=== PATIENT | male | born 1965 | race Caucasian/White ===

== ENCOUNTER 2016-11-27 18:14 | Inpatient (IN) | payer OTHER, MEDICARE ==
[~2016-11-27] VITALS: Ht 175.3 cm; Wt 172.7 kg
[~2016-11-27 18:14] MED LIST: AMLODIPINE/BENAZ PO; ASPI81 PO; DARV PO; GLUCTAB PO; GLYB1TAB51 PO; METATAB PO; POTA-243 PO; TOPR50TA PO; TORS20 PO; ZEGRID PO
[2016-11-27 18:17] VITALS: BP 111/57; PULSE 122; RESP 33; TEMP 101.7; O2SAT 93
[2016-11-27] MEDS ORDERED: ACETAMINOPHEN 325 MG TAB PO ONE (18:30)
[2016-11-27] MEDS ORDERED: SODIUM CHLORIDE 0.9% FLUSH 10 ML FLUSH IVF PRN (18:30)
[2016-11-27] MEDS: RESP: ALBUTEROL 2.5 MG/IPRATROPIUM 0.5 MG NEB (SCH) INH ×2 (18:30→18:37)
--- NOTE | 2016-11-27 18:50 | RADRPT ---
EXAM DATE/TIME: 11/27/2016 18:43 [facility] COMPARISON: No previous studies available for comparison. INDICATIONS : Shortness of breath. MEDICAL HISTORY : Hypertension. Diabetes mellitus type II. SURGICAL HISTORY : None. ENCOUNTER: Initial ACUITY: 2 days PAIN SCORE: 0/10 LOCATION: Bilateral chest FINDINGS: A single view of the chest demonstrates the lungs to be symmetrically aerated without evidence of mas s, infiltrate or effusion. The cardiomediastinal contours are unremarkable. Osseous structures are intact. CONCLUSION: No acute disease. Bradley Ivy MD on November 27, 2016 at 18:48 Board Certified Radiologist. This report was verified electronically.
--- NOTE | 2016-11-27 18:52 | PD ---
HPI Chief Complaint: Respiratory Symptoms Time Seen by Provider: 18:30 Travel History International Travel<30 days: No Contact w/Intl Traveler<30days: No Traveled to known affect area: No History of Present Illness HPI 51-year-old male presents to the emergency department via EMS for evaluation of shortness of breath. Patient states his symptoms started yesterday. He is also febrile on exam, temp 101.7. He states this started yesterday. He last had Tylenol at 2 PM. Patient denies any history of respiratory issues, but does smoke 3 packs per day for over 40 years. He states he has hypertension and spinal cord problems. Patient denies any history of CHF, renal disease. He states that he is short of breath. He denies any chest pain. Patient states he has had pneumonia in the past, but nothing significant. He reports cough. He apparently received albuterol and Solu-Medrol 125 mg IV via EMS. PFSH Past Medical History Blood Disorders: No Cancer: No Cardiovascular Problems: Yes Diabetes: Yes Endocrine: No Glaucoma: No Genitourinary: No Headaches: Yes Hepatitis: No Hiatal Hernia: No Hypertension: Yes Immune Disorder: No Musculoskeletal: Yes Neurologic: Yes Psychiatric: No Reproductive: No Respiratory: Yes Thyroid Disease: No Past Surgical History Abdominal Surgery: Yes (COLONOSCOPY) Cardiac Surgery: Yes (HEART CATH 2003) Pacemaker: No Social History Alcohol Use: No Tobacco Use: Yes (1 PACK DAY 30 YEARS) Substance Use: No Allergies-Medications (Allergen,Severity, Reaction): Coded Allergies: No Known Allergies (Verified , 11/27/16) Reported Meds & Prescriptions Reported Meds & Active Scripts Active Reported ZyrTEC Itchy Eye Opth Drops (Ketotifen Opth Drops) 0.025% Drops 1 Drop EACH EYE BID PRN Niacin (Niacinamide) 500 Mg Tablet 1,000 Mg PO HS Montelukast (Montelukast Sodium) 10 Mg Tab 10 Mg PO HS Meloxicam 15 Mg Tab 15 Mg PO DAILY Hydrochlorothiazide 25 Mg Tab 25 Mg PO DAILY Benazepril (Benazepril HCl) 40 Mg Tab 40 Mg PO DAILY Pravastatin 10 Mg Tab 10 Mg PO DAILY Metoprolol Succinate ER 24 HR (Metoprolol Succinate) 100 Mg Tab 100 Mg PO DAILY Tramadol (Tramadol HCl) 50 Mg Tab 50 Mg PO BID PRN Metformin (Metformin HCl) 1,000 Mg Tab 1,000 Mg PO TIDAC Gabapentin 300 Mg Cap 300 Mg PO HS Omeprazole 20 Mg Tab 20 Mg PO DAILY Trulicity Inj (Dulaglutide Inj) 1.5 Mg/0.5 Ml Pen 1.5 Mg SQ Q7D Aspirin Low Dose (Aspirin) 81 Mg Chew 81 Mg CHEW DAILY Review of Systems Except as stated in HPI: all other systems reviewed are Neg Physical Exam Narrative GENERAL: Well-nourished, well-developed obese male patient, temperature of 101.7. SKIN: Focused skin assessment warm/dry. HEAD: Normocephalic. Atraumatic. EYES: No scleral icterus. No injection or drainage. NECK: Supple, trachea midline. No JVD or lymphadenopathy. CARDIOVASCULAR: Regular rhythm without murmurs, gallops, or rubs. Patient is tachycardic. RESPIRATORY: Breath sounds equal bilaterally. No accessory muscle use. Lungs sounds are diminished throughout. Dry cough noted. GASTROINTESTINAL: Abdomen soft, non-tender, nondistended. MUSCULOSKELETAL: No cyanosis, or edema. BACK: Nontender without obvious deformity. No CVA tenderness. Data Data Last Documented VS Vital Signs Date Time Temp Pulse Resp B/P (MAP) Pulse Ox O2 Delivery O2 Flow Rate FiO2 11/27/16 22:13 85 26 143/60 (87) 86 Nasal Cannula 2.00 11/27/16 21:12 98.6 Orders Orders Ecg Monitoring (11/27/16 18:23) Iv Access Insert/Monitor (11/27/16 18:23) Oximetry (11/27/16 18:23) Oxygen Administration (11/27/16 18:23) Albuterol-Ipratropium Neb (Duoneb Neb) (11/27/16 18:30) Sodium Chloride 0.9% Flush (Ns Flush) (11/27/16 18:30) Complete Blood Count With Diff (11/27/16 18:30) Basic Metabolic Panel (Bmp) (11/27/16 18:30) B-Type Natriuretic Peptide (11/27/16 18:30) Act Partial Throm Time (Ptt) (11/27/16 18:30) Prothrombin Time / Inr (Pt) (11/27/16 18:30) Magnesium (Mg) (11/27/16 18:30) Ckmb (Isoenzyme) Profile (11/27/16 18:30) Troponin I (11/27/16 18:30) Blood Culture (11/27/16 18:30) Electrocardiogram (11/27/16 18:30) Chest, Single Ap (11/27/16 18:30) Lactic Acid Sepsis Protocol (11/27/16 18:30) Acetaminophen (Tylenol) (11/27/16 18:30) Ct Pulmonary Angiogram (11/27/16 ) Sodium Chlor 0.9% 1000 Ml Inj (Ns 1000 M (11/27/16 19:30) CKMB (11/27/16 18:45) CKMB% (11/27/16 18:45) Azithromycin Inj (Zithromax Inj) (11/27/16 20:45) Ceftriaxone Inj (Rocephin Inj) (11/27/16 20:45) Sodium Chlor 0.9% 1000 Ml Inj (Ns 1000 M (11/27/16 21:00) Iohexol 350 Inj (Omnipaque 350 Inj) (11/27/16 22:32) Labs Laboratory Tests Test 11/27/16 18:45 11/27/16 18:47 11/27/16 21:10 White Blood Count 14.2 TH/MM3 Red Blood Count 4.56 MIL/MM3 Hemoglobin 13.9 GM/DL Hematocrit 42.4 % Mean Corpuscular Volume 93.0 FL Mean Corpuscular Hemoglobin 30.4 PG Mean Corpuscular Hemoglobin Concent 32.7 % Red Cell Distribution Width 14.2 % Platelet Count 199 TH/MM3 Mean Platelet Volume 8.8 FL Neutrophils (%) (Auto) 78.8 % Lymphocytes (%) (Auto) 13.0 % Monocytes (%) (Auto) 8.0 % Eosinophils (%) (Auto) 0.0 % Basophils (%) (Auto) 0.2 % Neutrophils # (Auto) 11.2 TH/MM3 Lymphocytes # (Auto) 1.8 TH/MM3 Monocytes # (Auto) 1.1 TH/MM3 Eosinophils # (Auto) 0.0 TH/MM3 Basophils # (Auto) 0.0 TH/MM3 CBC Comment DIFF FINAL Differential Comment Prothrombin Time 12.2 SEC Prothromb Time International Ratio 1.1 RATIO Activated Partial Thromboplast Time 29.5 SEC Blood Urea Nitrogen 13 MG/DL Creatinine 1.41 MG/DL Random Glucose 166 MG/DL Calcium Level 9.1 MG/DL Magnesium Level 1.4 MG/DL Sodium Level 136 MEQ/L Potassium Level 4.0 MEQ/L Chloride Level 98 MEQ/L Carbon Dioxide Level 26.0 MEQ/L Anion Gap 12 MEQ/L Estimat Glomerular Filtration Rate 53 ML/MIN Total Creatine Kinase 448 U/L Creatine Kinase MB LESS THAN 0.5 NG/ML Creatine Kinase MB % 0.1 % Troponin I LESS THAN 0.02 NG/ML B-Type Natriuretic Peptide 100 PG/ML Lactic Acid Level 2.8 mmol/L 3.3 mmol/L [facility] Medical Decision Making Medical Screen Exam Complete: Yes Emergency Medical Condition: Yes Medical Record Reviewed: Yes Interpretation(s) chest x-ray - CONCLUSION: No acute disease. Differential Diagnosis Pneumonia versus sepsis versus COPD exacerbation Narrative Course 51-year-old male presents to the emergency department for evaluation of shortness breath, fever that started yesterday. Temperature is 101.7 on arrival. Patient received albuterol nebulizer treatment, Solu-Medrol 125 mg IV prior to arrival. EKG, CBC, BMP, BNP, magnesium, CK, troponin, PTT, PT/INR, lactic acid, blood cultures 2 are ordered and pending. Chest x-ray is ordered and pending. Patient is given Tylenol 650 mg by mouth. EKG shows sinus rhythm, no acute ST changes. CBC shows leukocytosis of 14.2. BMP shows creatinine 1.41, glucose 166. BNP is 100. CK is 448. Troponin is less than 0.02. Lactic acid is 2.8. Magnesium is 1.4. Coags show no acute abnormality. Chest x-ray shows no acute disease. Patient is given azithromycin 500 mg IV, Rocephin 1 g IV. Patient is given Tylenol 2 L normal saline IV bolus. CT pulmonary angiogram is pending. Dr. Burnette will resume care and disposition of patient. Shell Treviño Nov 27, 2016 18:52
[2016-11-27 19:13] VITALS: BP 117/57; PULSE 101; RESP 26; O2SAT 97
[2016-11-27 19:24] LABS: AUTOMATED NEUTROPHIL # 11.2 TH/MM3 (1.8-7.7); BASOPHIL % 0.2 % (0.0-2.0); HEMATOCRIT 42.4 % (39.0-51.0); HEMO FLAGS DIFF FINAL; LYMPHOCYTE # 1.8 TH/MM3 (1.0-4.8); MEAN CORPUSCULAR HEMOGLOBIN 30.4 PG (27.0-34.0); MEAN CORPUSCULAR HGB CONC 32.7 % (32.0-36.0); NEUT % 78.8 % (16.0-70.0); PLATELET COUNT 199 TH/MM3 (150-450); RED BLOOD COUNT 4.56 MIL/MM3 (4.50-5.90); RED CELL DISTRIBUTION WIDTH 14.2 % (11.6-17.2); WHITE BLOOD COUNT 14.2 TH/MM3 (4.0-11.0)
[2016-11-27 19:27] LABS: ANION GAP 12 MEQ/L (5-15); BLOOD UREA NITROGEN 13 MG/DL (7-18); CHLORIDE 98 MEQ/L (98-107); GLOMERULAR FILTRATION RATE 53 ML/MIN (>89); MAGNESIUM 1.4 MG/DL (1.5-2.5); SODIUM (NA) 136 MEQ/L (136-145)
[2016-11-27] MEDS ORDERED: SODIUM CHLOR 0.9% 1000 ML INJ 1,000 ML IV ONE ×2 (19:30→21:00)
[2016-11-27 19:31] LABS: CREATINE KINASE 448 U/L (39-308)
[2016-11-27 19:32] LABS: APTT (PATIENT) 29.5 SEC (24.3-30.1); INTERNATIONAL NORMALIZED RATIO 1.1 RATIO; PROTHROMBIN TIME - PATIENT 12.2 SEC (9.8-11.6)
[2016-11-27] MEDS ORDERED: METF1000 PO (19:32)
[2016-11-27] MEDS ORDERED: NIAC500T67 PO (19:32)
[2016-11-27] MEDS ORDERED: TRAM50TA PO (19:32)
[2016-11-27] MEDS ORDERED: METO100T9 PO (19:32)
[2016-11-27] MEDS ORDERED: GABA300C5 PO (19:32)
[2016-11-27] MEDS ORDERED: PRAV10TA PO (19:32)
[2016-11-27] MEDS ORDERED: DULA0.5I SQ (19:32)
[2016-11-27] MEDS ORDERED: MONT10TA4 PO (19:32)
[2016-11-27] MEDS ORDERED: OMEP20TA PO (19:32)
[2016-11-27] MEDS ORDERED: ASPI81CH37 CHEW (19:32)
[2016-11-27] MEDS ORDERED: HYDR25TA5 PO (19:32)
[2016-11-27] MEDS ORDERED: KETO0.02 EACH EYE (19:32)
[2016-11-27] MEDS ORDERED: MELO-1 PO (19:32)
[2016-11-27] MEDS ORDERED: BENA40TA PO (19:32)
[2016-11-27 19:44] LABS: CKMB LESS THAN 0.5 NG/ML (0.5-3.6)
[2016-11-27] MEDS ORDERED: AZITHROMYCIN INJ 500 MG in SODIUM CHLOR 0.9% 250 ML INJ 250 ML IV ONE (20:45)
[2016-11-27] MEDS ORDERED: cefTRIAXone INJ 1,000 MG in SODIUM CHLORIDE 0.9% INJ 100 ML IV ONE (20:45)
--- NOTE | 2016-11-27 20:46 | PD ---
Physical Exam Narrative I, Dr. Burnette, have reviewed the advance practice practitioner's documentation and am in agreement, met with the patient face to face, made the diagnosis, and the medical decision making was done by me. *My assessment and Findings: Pneumonia vs. ACS vs. PE vs. COPD exacerbation 51yo M with sob, fever and cough for 1 day. Pt is hypoxic at 85-87% on RA so placed on nasal cannula 3L NC. Pt was given duonebs since he has a long history of cig smoking. Labs reviewed, leukocytosis at 14.2. Lactic acid elevated at 2.8. Troponin negative. BNP 100. Creatinine mildly elevated at 1.41. Pt initially febrile and tachycardic and given acetaminophen and NS IVF. Suspect pneumonia and empirically covered with antibiotics. CXR negative. CT angio ordered to r/o since pt is still hypoxic. No PE seen but there is a lung nodule that needs outpatient follow up. Pt denies any COPD but is a long time cig smoker. Upon reevaluation, said that he uses a machine at night so pt placed on CPAP and oxygenation improved. Discussed with [facility] hospitalist and accepted to their service. Data Data Last Documented VS Vital Signs Date Time Temp Pulse Resp B/P (MAP) Pulse Ox O2 Delivery O2 Flow Rate FiO2 11/27/16 23:30 96 11/27/16 22:13 85 26 143/60 (87) Nasal Cannula 2.00 11/27/16 21:12 98.6 Orders Orders Ecg Monitoring (11/27/16 18:23) Iv Access Insert/Monitor (11/27/16 18:23) Oximetry (11/27/16 18:23) Oxygen Administration (11/27/16 18:23) Albuterol-Ipratropium Neb (Duoneb Neb) (11/27/16 18:30) Sodium Chloride 0.9% Flush (Ns Flush) (11/27/16 18:30) Complete Blood Count With Diff (11/27/16 18:) Basic Metabolic Panel (Bmp) (11/27/16 18:30) B-Type Natriuretic Peptide (11/27/16 18:30) Act Partial Throm Time (Ptt) (11/27/16 18:30) Prothrombin Time / Inr (Pt) (11/27/16 18:30) Magnesium (Mg) (11/27/16 18:30) Ckmb (Isoenzyme) Profile (11/27/16 18:30) Troponin I (11/27/16 18:30) Blood Culture (11/27/16 18:30) Electrocardiogram (11/27/16 18:30) Chest, Single Ap (11/27/16 18:30) Lactic Acid Sepsis Protocol (11/27/16 18:30) Acetaminophen (Tylenol) (11/27/16 18:30) Ct Pulmonary Angiogram (11/27/16 ) Sodium Chlor 0.9% 1000 Ml Inj (Ns 1000 M (11/27/16 19:30) CKMB (11/27/16 18:45) CKMB% (11/27/16 18:45) Azithromycin Inj (Zithromax Inj) (11/27/16 20:45) Ceftriaxone Inj (Rocephin Inj) (11/27/16 20:45) Sodium Chlor 0.9% 1000 Ml Inj (Ns 1000 M (11/27/16 21:00) Iohexol 350 Inj (Omnipaque 350 Inj) (11/27/16 22:32) Arterial Blood Gas (Abg) (11/27/16 ) Resp Bipap / Cpap Non Invas Vt (11/27/16 23:30) Admit Order (Ed Use Only) (11/27/16 23:31) Labs Laboratory Tests Test 11/27/16 18:45 11/27/16 18:47 11/27/16 21:10 White Blood Count 14.2 TH/MM3 Red Blood Count 4.56 MIL/MM3 Hemoglobin 13.9 GM/DL Hematocrit 42.4 % Mean Corpuscular Volume 93.0 FL Mean Corpuscular Hemoglobin 30.4 PG Mean Corpuscular Hemoglobin Concent 32.7 % Red Cell Distribution Width 14.2 % Platelet Count 199 TH/MM3 Mean Platelet Volume 8.8 FL Neutrophils (%) (Auto) 78.8 % Lymphocytes (%) (Auto) 13.0 % Monocytes (%) (Auto) 8.0 % Eosinophils (%) (Auto) 0.0 % Basophils (%) (Auto) 0.2 % Neutrophils # (Auto) 11.2 TH/MM3 Lymphocytes # (Auto) 1.8 TH/MM3 Monocytes # (Auto) 1.1 TH/MM3 Eosinophils # (Auto) 0.0 TH/MM3 Basophils # (Auto) 0.0 TH/MM3 CBC Comment DIFF FINAL Differential Comment Prothrombin Time 12.2 SEC Prothromb Time International Ratio 1.1 RATIO Activated Partial Thromboplast Time 29.5 SEC Blood Urea Nitrogen 13 MG/DL Creatinine 1.41 MG/DL Random Glucose 166 MG/DL Calcium Level 9.1 MG/DL Magnesium Level 1.4 MG/DL Sodium Level 136 MEQ/L Potassium Level 4.0 MEQ/L Chloride Level 98 MEQ/L Carbon Dioxide Level 26.0 MEQ/L Anion Gap 12 MEQ/L Estimat Glomerular Filtration Rate 53 ML/MIN Total Creatine Kinase 448 U/L Creatine Kinase MB LESS THAN 0.5 NG/ML Creatine Kinase MB % 0.1 % Troponin I LESS THAN 0.02 NG/ML B-Type Natriuretic Peptide 100 PG/ML Lactic Acid Level 2.8 mmol/L 3.3 mmol/L MDM Supervised Visit with HERIBERTO: Yes Critical Care Narrative Aggregate critical care time was 45 minutes. Time to perform other separately billable procedures was not included in the critical care time. My time did not include minutes spent treating any other patients simultaneously or on activities that did not directly contribute to the patient's treatment. The services I provided to this patient were to treat and/or prevent clinically significant deterioration that could result in: Respiratory collapse or . I provided critical care services requiring my management, as noted below: Chart data/review, documentation time, medication orders and management, vital sign assessments/reviewing monitor data, ordering and reviewing lab tests, ordering and interpreting/reviewing x- rays and diagnostic studies, care of the patient and discussion of the patient with admitting physicians. Sepsis Criteria SIRS Criteria (2 or more): Temp > 100.9 or < 96.8, Heart rate over 90, RR > 20 or PaCO2 < 32, WBC > 85768, < 4000 or > 10% bands Sepsis Criteria (SIRS+source): Infect source susp/known Severe Sepsis (+one): Lactate >2 Criteria Outcome: Meets severe sepsis criteria Diagnosis Primary Impression: Sepsis Qualified Codes: A41.9 - Sepsis, unspecified organism Admitting Information Admitting Physician Requests: Adryan BurnetteBernice DO Nov 27, 2016 20:46
[2016-11-27 20:59] LABS: LACTIC ACID GHOST NOT REPORTABLE
[2016-11-27 21:12] VITALS: TEMP 98.6
[2016-11-27 22:13] VITALS: BP 143/60; PULSE 85; RESP 26; O2SAT 86
[2016-11-27] MEDS ORDERED: IOHEXOL 350 MG/ML 10 ML VIAL (for RAD DIAG) IVCONTRAST ONE (22:32)
--- NOTE | 2016-11-27 22:54 | RADRPT ---
EXAM DATE/TIME: 11/27/2016 22:21 [facility] COMPARISON: No previous studies available for comparison. INDICATIONS : Shortness of breath x3 days with wheezing and fever. IV CONTRAST: 80 cc Omnipaque 350 (iohexol) IV RADIATION DOSE: 15.7 CTDIvol (mGy) MEDICAL HISTORY : Cardiovascular disease. Hypertension. Diabetes mellitus type 2. SURGICAL HISTORY : Fusion, cervical. ENCOUNTER: Initial ACUITY: 3 days PAIN SCALE: 0/10 LOCATION: chest TECHNIQUE: Volumetric scanning of the chest was performed using a pulmonary embolism protocol MIP images were re constructed. Using automated exposure control and adjustment of the mA and/or kV according to patien t size, radiation dose was kept as low as reasonably achievable to obtain optimal diagnostic quality images. DICOM format image data is available electronically for review and comparison. Follow-up recommendations for detected pulmonary nodules are based at a minimum on nodule size and pa tient risk factors according to Fleischner Society Guidelines. FINDINGS: PULMONARY ARTERIES: No filling defects are seen in the pulmonary arteries through the segmental level. LUNGS: There is no consolidation or pneumothorax 6 mm noncalcified nodule is identified in the right upper l obe. Nodule is located along the minor fissure. Tiny calcified granulomas noted in the right upper lo be. PLEURAE: There is no pleural thickening or pleural effusion. MEDIASTINUM: Small mediastinal and hilar lymph nodes are identified. The largest measures 1.4 cm and is located in the right paratracheal region. Heart is unremarkable. MUSCULOSKELETAL: Within normal limits for patient age. MISCELLANEOUS: The visualized upper abdominal organs demonstrate no acute abnormality. The liver is enlarged and dif fusely hypodense. CONCLUSION: 1. No evidence of pulmonary embolism 2. Small nonspecific mediastinal and hilar lymph nodes. 3. 6 mm nodule in the right upper lobe along the minor fissure which may represent a small lymph node . Surveillance is recommended with followup scan in 6 months. 4. Right upper lobe calcified granuloma. 5. Enlarged hypodense liver characteristic of steatosis. Bradley Ivy MD on November 27, 2016 at 22:46 Board Certified Radiologist. This report was verified electronically.
[2016-11-27 23:30] VITALS: O2SAT 96
[2016-11-28] VITALS (15 sets, daily range): BP systolic 97–122; BP diastolic 50–74; PULSE 68–77; RESP 20–31; TEMP 97.6–98.5; O2SAT 90–99
[2016-11-28] MEDS ORDERED: RESP: ALBUTEROL 2.5 MG/IPRATROPIUM 0.5 MG NEB (PRN) NEB (00:15)
[2016-11-28] MEDS ORDERED: MAGNESIUM SULFATE 4 GM PREMIX 100 ML IV ONE (00:15)
[2016-11-28] MEDS ORDERED: SENNOSIDES 8.6 MG TAB PO PRN (00:15)
[2016-11-28] MEDS ORDERED: MAGNESIUM HYDROXIDE SUSP 30 ML CUP PO PRN (00:15)
[2016-11-28] MEDS ORDERED: SODIUM CHLORIDE 0.9% FLUSH 10 ML FLUSH IV FLUSH PRN (00:15)
[2016-11-28] MEDS ORDERED: GLUCAGON 1 MG/ML VIAL OTHER PRN (00:15)
[2016-11-28] MEDS ORDERED: BISACODYL 10 MG SUPP RECTAL PRN (00:15)
[2016-11-28] MEDS ORDERED: DEXTROSE 50% IN WATER 50 ML VIAL(D50) IV PUSH PRN (00:15)
[2016-11-28] MEDS ORDERED: LACTULOSE SYRUP 20 GM/30 ML CUP PO PRN (00:15)
[2016-11-28] MEDS ORDERED: NALOXONE HCL 0.4 MG/ML AMP IV PUSH PRN (00:15)
[2016-11-28] MEDS ORDERED: KETOTIFEN EACH EYE PRN (00:30)
[2016-11-28] MEDS: SODIUM CHLOR 0.9% 1000 ML INJ 1,000 ML IV SCH ×2 (00:40→09:27)
[2016-11-28] MEDS: HEPARIN SODIUM - SQ 10,000 UNITS/ML VIAL SQ SCH ×2 (00:49→12:55)
[2016-11-28] MEDS: MAGNESIUM SULFATE 1 GM PREMIX 100 ML IV SCH ×4 (00:59→06:47)
[2016-11-28] MEDS: traMADol HCL 50 MG TAB PO PRN ×3 (02:39→21:25)
[2016-11-28 02:44] LABS: BLOOD GAS CARBOXYHEMOGLOBIN 0.9 % (0-4); BLOOD GAS HCO3 25 mmol/L (22-26); BLOOD GAS METHEMOGLOBIN 0.7 % (0-2); BLOOD GAS O2 HGB SATURATION 92 % (90-100); BLOOD GAS OXYGEN CONTENT 16.9 Vol % (12.0-20.0); BLOOD GAS PCO2 52 mmHg (38-42); BLOOD GAS PO2 71 mmHG (61-120); BLOOD GAS TOTAL HGB 13.1 G/DL (12.0-16.0); CRITICAL VALUE YES; DRAW SITE LT RADIAL; LITER FLOW 6 L/M; NUMBER OF ARTERIAL PUNCTURES 1; OXYGEN DEVICE CPAP; STAT YES; TEMP CORR TO 98.6; ULNAR PULSE PRESENT; VENT SETTINGS PEEP 10
[2016-11-28] MEDS: RESP: ALBUTEROL 2.5 MG/IPRATROPIUM 0.5 MG NEB (SCH) NEB ×5 (03:06→23:32)
[2016-11-28] MEDS: methylPREDNISolone SOD SUCC 40 MG/1 ML VIAL IV PUSH SCH ×3 (06:47→18:03)
--- NOTE | 2016-11-28 07:41 | EKG ---
Date Performed: 11/27/2016 Time Performed: 18:56:31 PTAGE: 51 years EKG: SINUS TACHYCARDIA BORDERLINE LEFT AXIS DEVIATION POSSIBLE RIGHT VENTRICULAR CONDUCTION SYLVIE Y ABNORMAL RHYTHM ECG Compared to prior electrocardiogram, rate has increased PREVIOUS TRACING : 09/20/2005 10.50 DOCTOR: Logan Villarreal Interpretating Date/Time 11/28/2016 07:41:11
[2016-11-28] MEDS: MELOXICAM 15 MG TAB PO SCH (09:00)
[2016-11-28] MEDS: PRAVASTATIN SOD 10 MG TAB PO SCH (09:25)
[2016-11-28] MEDS: METOPROLOL SUCCINATE 50 MG EXTENDED RELEASE TAB PO SCH (09:25)
[2016-11-28] MEDS: LISINOPRIL 20 MG TAB PO SCH (09:25)
[2016-11-28] MEDS: DOCUSATE SODIUM 50 MG/SENNA 8.6 MG TAB PO SCH ×2 (09:25→19:51)
[2016-11-28] MEDS: PANTOPRAZOLE SOD 20 MG DELAYED RELEASE TAB PO SCH (09:25)
[2016-11-28] MEDS: ASPIRIN 81 MG CHEW TAB CHEW SCH (09:26)
[2016-11-28] MEDS: SODIUM CHLORIDE 0.9% FLUSH 10 ML FLUSH IV FLUSH SCH ×2 (09:26→19:50)
[2016-11-28] MEDS: INSULIN ASPART SUPPLEMENTAL SCALE SQ SCH ×4 (09:31→21:00)
--- NOTE | 2016-11-28 14:56 | RADRPT ---
EXAM DATE/TIME: 11/28/2016 14:07 [facility] COMPARISON: CHEST SINGLE AP, November 27, 2016, 18:43. INDICATIONS : Short of breath. MEDICAL HISTORY : Cardiovascular disease. Hypertension. Diabetes mellitus type 2. SURGICAL HISTORY : Fusion, cervical. ENCOUNTER: Subsequent ACUITY: 2 days PAIN SCORE: 0/10 LOCATION: Bilateral chest FINDINGS: A single view of the chest demonstrates the lungs to be symmetrically aerated without evidence of mas s, infiltrate or effusion. The cardiomediastinal contours are unremarkable. Osseous structures are intact. CONCLUSION: 1. No acute cardiopulmonary disease. Ted Cardona MD on November 28, 2016 at 14:55 Board Certified Radiologist. This report was verified electronically.
--- NOTE | 2016-11-28 16:18 | MB ---
cc: VEE PASTOR DATE OF CONSULTATION 11/28/2016 REASON FOR CONSULTATION Respiratory failure. HISTORY OF THE PRESENT ILLNESS This is a 51-year-old white male who is extremely overweight with a history of obstructive sleep apnea and COPD, was admitted through the emergency room with shortness of breath, wheezing and chest congestion. The patient has chronic pain in his neck and back from previous spinal surgery and also smoked two to three packs per day and has done so for over 40 years. He has had pneumonia in the past and upon arrival in the ER a chest x-ray was done which showed no active infiltrates. He had a CT angiogram of the chest which showed no pulmonary embolus but there was a 6 mm nodule in the right upper lobe along the minor fissure. There was also a nonspecific hilar and mediastinal lymph node and calcified granuloma in the right upper lobe and steatosis of the liver. The patient had blood gases that showed evidence of hypercapnia. He is now on C-PAP mask which he has had for more than 2 years given for sleep apnea. PAST MEDICAL HISTORY Of the patient has history included: 1. History of sleep apnea. 2. History of diabetes mellitus. 3. History of chronic headaches and neck pain. 4. History of hypertension. PAST SURGICAL HISTORY Surgery includes: 1. Cervical disc surgery. 2. Colonoscopy. 3. Cardiac catheterization. SOCIAL HISTORY Habits, the patient smoked two to three packs per day for over 30 years. No significant alcohol use. He is presently disabled. ALLERGIES None listed. MEDICATIONS List included: 1. Pravastatin 10 mg daily. 2. Hydrochlorothiazide 25 mg a day. 3. Benazepril 40 mg daily. 4. Meloxicam 15 mg daily. 5. Singulair 10 mg at bedtime. 6. Niacin 1000 milligrams at bedtime. 7. Metformin 1000 mg t.i.d. 8. Omeprazole 20 mg a day. 9. Tramadol 50 mg p.r.n. 10. Trulicity 1.5 mg subcu every 7 days. 11. Aspirin one daily. FAMILY HISTORY Noncontributory. ALLERGIES None listed. REVIEW OF SYSTEMS The patient has shortness of breath. He has wheezing and sleep apnea. He has epigastric distress. No nausea. He has leg swelling. No calf muscle pains. He has some joint pains of his extremities. He does have headaches and neck pain. He has no urinary symptoms. He has some anxiety with depression. The other system review is negative. PHYSICAL EXAMINATION GENERAL: This very obese middle-aged white male who is alert and anxious, mildly dyspneic and face was plethoric. VITAL SIGNS: His blood pressure 140/70, pulse is 85, respirations 20, temperature 97.5. HEENT: Head normocephalic. Pupils reactive and equal. Tongue is moist. Throat was injected. Nasal mucosa is clear. NECK: No bruits. No thyroid enlargement or lymphadenopathy. CHEST: Distant breath sounds with occasional wheezes throughout both lung longo. Prolonged expirations. HEART: The heart sounds are regular S1-S2 with no murmur, no S3 gallop. ABDOMEN: Obese, protuberant without masses. No organomegaly or tenderness. Bowel sounds are active. EXTREMITIES: Varicosities. Pigmentation of the skin of the lower extremities. No calf tenderness. NEUROLOGIC: Reflexes 1+ with no gross motor deficits. Cranial nerves grossly intact. The patient is alert and oriented and cooperative. IMPRESSION 1. Acute on chronic respiratory failure. 2. Obstructive sleep apnea syndrome. 3. COPD with acute exacerbation. 4. Chronic bronchitis and emphysema. 5. Hypertension. 6. Diabetes mellitus type 2. 7. Nicotine dependency. 8. Chronic neck pain with cervical disk disease. PLAN The patient has been started on O2 at 3 liters, nebulized DuoNeb solution q.i.d. and we will continue with antibiotic coverage including Rocephin 1 gram IV daily and Zithromax 500 mg IV daily. We will get a pulmonary function study in the a.m. Blood gas study as well. The patient was counseled about quitting cigarette smoking. The Solu-Medrol will be tapered down to 40 mg q.6h. And repeat blood gas to be done in the a.m. Thank you Dr. Irizarry for this consultation. MD NICK Berry/NATI /3:38 PM /3:50 PM
[2016-11-28 17:58] LABS: HEMATOCRIT 40.6 % (39.0-51.0); MEAN CORPUSCULAR HGB CONC 32.2 % (32.0-36.0); PLATELET COUNT 192 TH/MM3 (150-450); RED BLOOD COUNT 4.37 MIL/MM3 (4.50-5.90); RED CELL DISTRIBUTION WIDTH 14.6 % (11.6-17.2); REVIEW FLAG FINAL; WHITE BLOOD COUNT 11.2 TH/MM3 (4.0-11.0)
[2016-11-28 19:00] LABS: BICARBONATE 23.3 MEQ/L (21.0-32.0); MAGNESIUM 2.7 MG/DL (1.5-2.5); POTASSIUM 4.5 MEQ/L (3.5-5.1)
[2016-11-28] MEDS: BUDESONIDE-FORMOTEROL 160/4.5 MCG INHALER INH SCH (19:50)
[2016-11-28] MEDS: cefTRIAXone INJ 1,000 MG in SODIUM CHLORIDE 0.9% INJ 100 ML IV SCH (19:50)
[2016-11-28] MEDS: GABAPENTIN 300 MG CAP PO SCH (19:51)
[2016-11-28] MEDS: MONTELUKAST SODIUM 10 MG TAB PO SCH (19:51)
[2016-11-28] MEDS: NIACIN 500 MG EXTENDED RELEASE TAB PO SCH (21:24)
[2016-11-28] MEDS: AZITHROMYCIN INJ 500 MG in SODIUM CHLOR 0.9% 250 ML INJ 250 ML IV SCH (21:25)
[2016-11-28] MEDS: ALPRAZolam 0.25 MG TAB PO PRN (21:25)
[2016-11-29] VITALS (14 sets, daily range): BP systolic 101–146; BP diastolic 60–66; PULSE 54–78; RESP 22–52; TEMP 98–98.5; O2SAT 87–99
[2016-11-29] MEDS: methylPREDNISolone SOD SUCC 40 MG/1 ML VIAL IV PUSH SCH ×5 (00:45→21:12)
[2016-11-29] MEDS: HEPARIN SODIUM - SQ 10,000 UNITS/ML VIAL SQ SCH ×2 (00:45→12:21)
[2016-11-29] MEDS: RESP: ALBUTEROL 2.5 MG/IPRATROPIUM 0.5 MG NEB (SCH) NEB ×6 (03:37→23:54)
[2016-11-29 05:19] LABS: AUTOMATED NEUTROPHIL # 9.7 TH/MM3 (1.8-7.7); HEMATOCRIT 38.9 % (39.0-51.0); HEMO FLAGS DIFF FINAL; LYMPH % 8.5 % (9.0-44.0); LYMPHOCYTE # 0.9 TH/MM3 (1.0-4.8); MEAN CELL VOLUME 93.6 FL (80.0-100.0); MEAN CORPUSCULAR HEMOGLOBIN 30.8 PG (27.0-34.0); MONO % 3.4 % (0.0-8.0); NEUT % 88.1 % (16.0-70.0); PLATELET COUNT 183 TH/MM3 (150-450); RED BLOOD COUNT 4.16 MIL/MM3 (4.50-5.90); RED CELL DISTRIBUTION WIDTH 14.5 % (11.6-17.2); WHITE BLOOD COUNT 11.1 TH/MM3 (4.0-11.0)
[2016-11-29 05:23] LABS: BICARBONATE 25.6 MEQ/L (21.0-32.0); MAGNESIUM 2.8 MG/DL (1.5-2.5); POTASSIUM 4.5 MEQ/L (3.5-5.1)
[2016-11-29 05:32] LABS: INDIRECT BILIRUBIN 0.2 MG/DL (0.0-0.8); TOTAL BILIRUBIN ADULT 0.3 MG/DL (0.2-1.0)
[2016-11-29] MEDS: SODIUM CHLOR 0.9% 1000 ML INJ 1,000 ML IV SCH (06:34)
[2016-11-29] MEDS: INSULIN ASPART SUPPLEMENTAL SCALE SQ SCH ×4 (08:00→21:00)
[2016-11-29] MEDS: DOCUSATE SODIUM 50 MG/SENNA 8.6 MG TAB PO SCH ×2 (08:06→21:00)
[2016-11-29] MEDS: METOPROLOL SUCCINATE 50 MG EXTENDED RELEASE TAB PO SCH (08:06)
[2016-11-29] MEDS: PANTOPRAZOLE SOD 20 MG DELAYED RELEASE TAB PO SCH (08:06)
[2016-11-29] MEDS: PRAVASTATIN SOD 10 MG TAB PO SCH (08:06)
[2016-11-29] MEDS: ASPIRIN 81 MG CHEW TAB CHEW SCH (08:06)
[2016-11-29] MEDS: LISINOPRIL 20 MG TAB PO SCH (08:06)
[2016-11-29] MEDS: MELOXICAM 15 MG TAB PO SCH (08:07)
[2016-11-29] MEDS: SODIUM CHLORIDE 0.9% FLUSH 10 ML FLUSH IV FLUSH SCH ×2 (08:08→21:19)
[2016-11-29] MEDS: BUDESONIDE-FORMOTEROL 160/4.5 MCG INHALER INH SCH ×2 (08:08→21:15)
[2016-11-29 08:14] LABS: BACTERIA, URINE RARE /hpf; BLOOD, URINE LARGE (NEG); COMMENT (UR) CULTURE INDICATED; CULTURE IF INDICATED CULTURE INDICATED; GLUCOSE,URINE NEG (NEG); HYALINE CAST, URINE 79 /lpf (RARE); KETONE, URINE NEG (NEG); MUCUS URINE FEW /lpf (OCC); NITRITE,URINE NEG (NEG); PH, URINE 5.5 (5.0-8.5); SQUAMOUS EPITHELIAL CELL URINE 1 /hpf (0-5); URINE COLOR YELLOW (YELLW/STRAW)
[2016-11-29] MEDS: traMADol HCL 50 MG TAB PO PRN ×2 (08:19→17:27)
[2016-11-29] MEDS: ALPRAZolam 0.25 MG TAB PO PRN ×2 (08:19→17:27)
--- NOTE | 2016-11-29 09:24 | MH ---
cc: EL IRIZARRY DATE OF ADMISSION 11/27/2016 DATE OF [address] El Irizarry. TIME The patient seen around 11:00 a.m. this morning. REASON FOR ADMISSION Respiratory symptoms. Shortness of breath, cough. HISTORY OF THE PRESENT ILLNESS The patient is a very pleasant 51-year-old male with a significant past medical history of 3 packs a day ____ history for 40 years. The patient came to the ER because of shortness of breath started the day before yesterday. The patient has a temperature of 101.7 degrees Fahrenheit as per record. He took Tylenol but it did not help much. He has a cough with some mild sputum. He does not know the color of the sputum. There is no chest pain. There is some nausea but there is no vomiting. Occasional diarrhea or constipation. There is no headache. The patient came to the ER. In the ER he was evaluated by the ER physician and found to have pneumonia and admitted. The patient was given Solu-Medrol in the EMS. His lactic acid was high. He was recommended for admission. On admission his heart rate was 122, temperature of 101.7 and blood pressure of 101/67. With a WBC count of 14.2. PAST MEDICAL HISTORY 1. The patient is following with Dr. Kramer for questionable cardiology reason. As per patient he just every six months just for a checkup. He had a cardiac cath done in 2003 as per records. 2. Also a history of hyperlipidemia. 3. Hypertension. 4. Diabetes. MEDICATIONS Reviewed, please see the EMR. ALLERGIES NO KNOWN DRUG ALLERGIES. SOCIAL HISTORY The patient does not drink or do any drugs. He smokes 3 packs per day for approximately 30-40 years. REVIEW OF SYSTEMS As described in the history of present illness. Otherwise negative for 10 systems. FAMILY HISTORY Noncontributory. PHYSICAL EXAMINATION GENERAL: The patient is alert and oriented, morbidly obese lying in bed with a Venti-mask on at present. Some shortness of breath. VITAL SIGNS: Show the patient is afebrile. Vitals were showing at that time afebrile, heart rate , respiratory rate is 20, blood pressure 116/74, pulse oximetry of 93% on 6 liters nasal cannula. HEENT: Head is atraumatic, normocephalic. Eyes negative conjunctival icterus. Mouth unremarkable. NECK: Supple. Negative increase in JVD. Central trachea. CHEST: Decreased distant air entry bibasilarly in the ____ with expiratory wheeze and ____ scattered all over and some inspiratory wheeze. And the patient has crackles in the bases. A couple of rhonchi in the bases. CARDIOVASCULAR: S1 and S2 audible. Unable to hear any S3 gallop. ABDOMEN: Soft, doughy. Non-tender. No organomegaly. Positive bowel sounds. EXTREMITIES: No cyanosis or pedal edema appreciated. TRAFFIC CONTROL TECHNICIAN: Grossly intact. SKIN: Warm and moist. PSYCHIATRIC: Appropriate mood and affect. LABORATORY DATA Investigations, WBC 14.2. Hemoglobin, hematocrit and platelet count within normal limits. Creatinine 1.41, GFR 53, random glucose 166, otherwise BMP within normal limits. Lactic acid last 3.3. Magnesium 1.4. Total bilirubin 448. Troponin less than 0.02. B-type natriuretic peptide 100. Nasal aspirate negative for flu A and B. Blood culture no growth for one day. IMAGING CT angiogram was done which showed no evidence of PE. Small nonspecific mediastinal and hilar lymph node. 6 mm nodule in the right upper lobe along the minor fissure which may represent a small lymph node. Right upper lobe calcified granuloma. Enlarged hypodense liver characteristic of steatosis. Chest x-ray was done which shows no acute disease. EKG was done which shows no acute ST-T waves changes. Sinus tachy. ABG was done yesterday which shows pH of 7.31, pCO2 of 52, O2 of 71 on 6 liters. ASSESSMENT 1. Respiratory failure. 2. Mild respiratory acidosis. 3. COPD exacerbation. 4. Acute bronchitis. 5. Leukocytosis secondary to above. 6. Sepsis on admission. 7. Lactic acidosis. 8. Hypomagnesemia. 9. Diabetes. 10. Hypertension. 11. Hyperlipidemia. PLAN 1. Admitted to the ICU. 2. IV hydration. 3. Breathing treatment. 4. IV antibiotic. 5. IV steroids. 6. Pulmonary consult. 7. Cardiology consult. 8. Labs for tomorrow. 9. Monitor lactic acid. 10. Monitor white blood cell count 11. Continue home medications as indicated. 12. Sliding scale insulin coverage. 13. We will hold metformin because of lactic acidosis and IV contrast use. 14. Breathing treatment on p.r.n. basis. 15. Discussed with the patient and family at bedside in detail. 16. Discussed with RN in detail. 17. Discussed with respiratory therapist. CONDITION Guarded. PROGNOSIS Guarded. Further recommendations as the patient progresses. El Irizarry MD JP/NATI /4:30 PM /9:13 AM
--- NOTE | 2016-11-29 10:15 | HHI.PR ---
Subjective Remarks has hematuria after garber cath no garber at present breathing better still cough and wheez ROS for 10 point system is otherwise unremarkable Objective Objective Results - Vital Signs Date Time Temp Pulse Resp B/P (MAP) Pulse Ox O2 Delivery O2 Flow Rate FiO2 11/29/16 08:00 98.0 62 26 108/66 (80) 92 11/29/16 08:00 62 11/29/16 07:55 92 CPAP 11/29/16 06:00 59 11/29/16 04:00 63 11/29/16 04:00 63 24 101/60 (74) 94 11/29/16 02:00 60 11/29/16 00:00 98.5 62 31 101/63 (76) 92 11/29/16 00:00 62 11/28/16 22:00 73 11/28/16 20:00 98.5 72 22 110/68 (82) 96 11/28/16 20:00 72 11/28/16 19:45 94 home cpap 6.00 11/28/16 18:00 73 11/28/16 16:00 98.0 71 31 102/73 (83) 98 11/28/16 16:00 72 11/28/16 14:00 68 11/28/16 13:55 16 11/28/16 12:00 76 11/28/16 12:00 97.8 76 24 97/66 (76) 94 I/O 11/28/16 11/28/16 11/28/16 11/29/16 11/29/16 11/29/16 07:00 15:00 23:00 07:00 15:00 23:00 Intake Total 1400 ml 1757 ml 1345 ml Output Total 1250 ml 425 ml Balance 1400 ml 507 ml 920 ml Intake Oral 400 ml 480 ml IV Total 1400 ml 1357 ml 865 ml Output Urine Total 1250 ml 425 ml # Voids 1 # Bowel Movements 0 0 Result Diagram: 11/29/16 0453 11/29/16 0453 Other Results Laboratory Tests Test 11/28/16 17:13 11/29/16 04:53 11/29/16 06:30 White Blood Count 11.2 11.1 Red Blood Count 4.37 4.16 Hemoglobin 13.1 12.8 Hematocrit 40.6 38.9 Mean Corpuscular Volume 93.0 93.6 Mean Corpuscular Hemoglobin 30.0 30.8 Mean Corpuscular Hemoglobin Concent 32.2 33.0 Red Cell Distribution Width 14.6 14.5 Platelet Count 192 183 Mean Platelet Volume 8.7 9.1 Blood Urea Nitrogen 22 34 Creatinine 1.08 1.46 Random Glucose 210 204 Calcium Level 8.7 8.2 Magnesium Level 2.7 2.8 Sodium Level 135 137 Potassium Level 4.5 4.5 Chloride Level 102 104 Carbon Dioxide Level 23.3 25.6 Anion Gap 10 7 Estimat Glomerular Filtration Rate 72 51 Neutrophils (%) (Auto) 88.1 Lymphocytes (%) (Auto) 8.5 Monocytes (%) (Auto) 3.4 Eosinophils (%) (Auto) 0.0 Basophils (%) (Auto) 0.0 Neutrophils # (Auto) 9.7 Lymphocytes # (Auto) 0.9 Monocytes # (Auto) 0.4 Eosinophils # (Auto) 0.0 Basophils # (Auto) 0.0 CBC Comment DIFF FINAL Differential Comment Total Protein 6.9 Albumin 3.0 Alkaline Phosphatase 97 Aspartate Amino Transf (AST/SGOT) 62 Alanine Aminotransferase (ALT/SGPT) 60 Total Bilirubin 0.3 Direct Bilirubin 0.1 Lactic Acid Level 1.2 Indirect Bilirubin 0.2 Urine Color YELLOW Urine Turbidity CLEAR Urine pH 5.5 Urine Specific [place] 1.023 Urine Protein TRACE Urine Glucose (UA) NEG Urine Ketones NEG Urine Occult Blood LARGE Urine Nitrite NEG Urine Bilirubin NEG Urine Urobilinogen LESS THAN 2.0 Urine Leukocyte Esterase SMALL Urine RBC 168 Urine WBC 36 Urine Squamous Epithelial Cells 1 Urine Bacteria RARE Urine Hyaline Casts 79 Urine Mucus FEW Microscopic Urinalysis Comment CULTURE INDICATED Date/Time Source Procedure Growth Status 11/27/16 18:50 Blood Peripheral Aerobic Blood Culture - Preliminary NO GROWTH IN 1 DAY Resulted 11/27/16 18:50 Blood Peripheral Anaerobic Blood Culture - Preliminary NO GROWTH IN 1 DAY Resulted 11/28/16 12:44 Nasal Aspirate Influenza Types A,B Antigen (JAMIN) - Final NEGATIVE FOR FLU A AND B ANTIGEN.... Complete 11/29/16 06:30 Urine Clean Catch Urine Culture Pending Received Physical Exam Physical Exam GENERAL: The patient is alert and oriented, morbidly obese lying in bed with a Venti-mask on at present. Some shortness of breath. VITAL SIGNS: reviewed HEENT: Head is atraumatic, normocephalic. Eyes negative conjunctival icterus. Mouth unremarkable. NECK: Supple. Negative increase in JVD. Central trachea. CHEST: Decreased distant air entry bibasilarly, with some expiratory wheeze and some inspiratory wheeze. And the patient has occ crackles in the bases. A couple of rhonchi in the bases. CARDIOVASCULAR: S1 and S2 audible. Unable to hear any S3 gallop. ABDOMEN: Soft, doughy. Non-tender. No organomegaly. Positive bowel sounds. EXTREMITIES: No cyanosis or pedal edema appreciated. MEDICAL CLAIMS REPRESENTATIVE: Grossly intact. SKIN: Warm and moist. PSYCHIATRIC: Appropriate mood and affect. A/P Assessment and Plan 1. Respiratory failure. 2. Mild respiratory acidosis. 3. COPD exacerbation. 4. Acute bronchitis. 5. Leukocytosis secondary to above. 6. Sepsis on admission. 7. Lactic acidosis. 8. Hypomagnesemia. 9. Diabetes. 10. Hypertension. 11. Hyperlipidemia. PLAN 1. seen in ICU. 2. IV hydration. 3. Breathing treatment. 4. IV antibiotic. 5. IV steroids. 6. Pulmonary consult jana . 7. education sales consultant on floor dw him about pt cond. 8. Labs reviewed and Labs for tomorrow. 9. wnl lactic acid. 10. Monitor white blood cell count 11. Continue home medications as indicated. 12. Sliding scale insulin coverage. 13. We will hold metformin because of lactic acidosis and IV contrast use. 14. Breathing treatment on p.r.n. basis. 15. Discussed with the patient and family at bedside in detail. 16. Discussed with RN. 17. monitor hematuria connd guarded CONDITION Guarded. PROGNOSIS Guarded. Further recommendations as the patient progresses. Jas Irizarry MD Nov 29, 2016 10:15
--- NOTE | 2016-11-29 11:30 | MB ---
cc: BRITNEY LARIOS M.D. DATE OF CONSULTATION: 11/29/2016 HISTORY OF PRESENT ILLNESS This is a 51-year-old male with history of hypertension, obesity and noncompliance, tobacco abuse about two packs daily, hypertension, venous insufficiency, sleep apnea on CPAP. The patient presented with severe episodes of shortness of breath. He was found to be in COPD exacerbation, having persistent cough also. No chest pain and no nausea or vomiting, no diaphoresis. PAST MEDICAL HISTORY As above. SOCIAL HISTORY As above. Occasional alcohol. No drugs. FAMILY HISTORY Noncontributory. REVIEW OF SYSTEMS Difficult to breathe, fatigue. Immobility. MEDICATION See chart for details. ALLERGIES No known drug allergies. PHYSICAL EXAMINATION GENERAL: Alert, oriented, on mask BiPAP. VITAL SIGNS: Blood pressure 108/70, pulse in the 70s. Regular equal bilateral respiration 20. Afebrile. HEENT: Unremarkable. HEART: S1, S2, very distant heart sounds. LUNGS: <<1:45>> ABDOMEN: Markedly, morbidly obese. EXTREMITIES: Trace edema. Pulses grossly intact. IMAGING STUDIES CTA and chest x-ray noted with no evidence for PE. LABORATORY DATA Cardiac enzymes and the BNP is essentially negative. IMPRESSION AND PLAN Possible exacerbation of COPD with possible element of bronchitis. Will get an Echo for him since he has not been seen in my office in the last 5 years, to get a better assessment of his cardiac status and followup with me. Thank you for the consultation. MD AURELIO Heard/MILLICENT /10:46 AM /11:11 AM
[2016-11-29] MEDS ORDERED: SODIUM CHLOR 0.9% 1000 ML INJ 1,000 ML IV SCH (12:45)
--- NOTE | 2016-11-29 17:40 | ECHRPT ---
Indication: sob CONCLUSIONS The left ventricular systolic function is normal with an estimated ejection fraction in the range of 55-60%. Mildly dilated left ventricle. Wall thickness is normal. [id number] mitral valve regurgitation. No aortic valve regurgitation. No aortic valve stenosis. There is mild tricuspid valve regurgitation. The pulmonary valve is not well visualized. BP: / HR: Rhythm: MEASUREMENTS (Male / Female) Normal Values Technical Quality:Fair 2D ECHO LV Diastolic Diameter PLAX 6.0 cm 4.2 - 5.9 / 3.9 - 5.3 cm LV Systolic Diameter PLAX 4.5 cm IVS Diastolic Thickness 1.0 cm 0.6 - 1.0 / 0.6 - 0.9 cm LVPW Diastolic Thickness 0.9 cm 0.6 - 1.0 / 0.6 - 0.9 cm LV Relative Wall Thickness 0.3 RV Internal Dim ED PLAX 3.4 cm M-MODE Aortic Root Diameter MM 3.9 cm LA Systolic Diameter MM 3.8 cm LA Ao Ratio MM 1.0 AV Cusp Separation MM 2.3 cm DOPPLER Mitral E Point Velocity 105.0 cm/s Mitral A Point Velocity 78.0 cm/s Mitral E to A Ratio 1.3 LV E' Lateral Velocity 11.5 cm/s Mitral E to LV E' Lateral Ratio 9.1 LV E' Septal Velocity 10.1 cm/s Mitral E to LV E' Septal Ratio 10.4 FINDINGS LEFT VENTRICLE The left ventricular systolic function is normal with an estimated ejection fraction in the range of 55-60%. Mildly dilated left ventricle. Wall thickness is normal. RIGHT VENTRICLE Normal right ventricular size and systolic function. LEFT ATRIUM The left atrial size is normal. RIGHT ATRIUM The right atrial size is normal. ATRIAL SEPTUM Normal atrial septal thickness without atrial level shunting by limited color doppler interrogation. AORTA The aortic root and proximal ascending aorta are normal in size on limited imaging. MITRAL VALVE Structurally normal mitral valve. [id number] mitral valve regurgitation. AORTIC VALVE Trileaflet aortic valve. No aortic valve regurgitation. No aortic valve stenosis. TRICUSPID VALVE Structurally normal tricuspid valve. There is mild tricuspid valve regurgitation. PULMONARY VALVE The pulmonary valve is not well visualized. VESSELS The inferior vena cava is normal in size. PERICARDIUM No pericardial effusion. Red Horvath MD (Electronically Signed) Final Date:29 November 2016 17:39
--- NOTE | 2016-11-29 19:32 | HHI.PR ---
Subjective Remarks Alert and on the CPAP mask. Good O2 sats. No chest pain. Has some cough. Objective Vital Signs Date Time Temp Pulse Resp B/P (MAP) Pulse Ox O2 Delivery O2 Flow Rate FiO2 11/29/16 18:00 54 11/29/16 16:00 60 11/29/16 16:00 98.3 60 22 146/63 (90) 98 11/29/16 14:00 59 11/29/16 12:00 98.0 66 22 107/63 (78) 94 11/29/16 12:00 66 11/29/16 10:00 65 11/29/16 09:19 26 11/29/16 08:00 98.0 62 26 108/66 (80) 92 11/29/16 08:00 62 11/29/16 07:55 92 CPAP 11/29/16 06:00 59 11/29/16 04:00 63 11/29/16 04:00 63 24 101/60 (74) 94 11/29/16 02:00 60 11/29/16 00:00 98.5 62 31 101/63 (76) 92 11/29/16 00:00 62 11/28/16 22:00 73 11/28/16 20:00 98.5 72 22 110/68 (82) 96 11/28/16 20:00 72 11/28/16 19:45 94 home cpap 6.00 I/O 11/28/16 11/28/16 11/28/16 11/29/16 11/29/16 11/29/16 07:00 15:00 23:00 07:00 15:00 23:00 Intake Total 1400 ml 1757 ml 1345 ml 300 ml 850 ml Output Total 1250 ml 425 ml 500 ml Balance 1400 ml 507 ml 920 ml 300 ml 350 ml Intake Oral 400 ml 480 ml 600 ml IV Total 1400 ml 1357 ml 865 ml 300 ml 250 ml Output Urine Total 1250 ml 425 ml 500 ml # Voids 1 # Bowel Movements 0 0 Result Diagram: 11/29/16 0453 11/29/16 045 Objective Remarks GENERAL: This very obese middle-aged white male who is alert and mildly dyspneic and face was plethoric. HEENT: Head normocephalic. Pupils reactive and equal. Tongue is moist. Throat was dry. Nasal mucosa is clear. NECK: No bruits. No thyroid enlargement or lymphadenopathy. CHEST: Distant breath sounds with occasional wheezes throughout both lung longo. Prolonged expirations. HEART: The heart sounds are regular S1-S2 with no murmur, no S3 gallop. ABDOMEN: Obese, protuberant without masses. No organomegaly or tenderness. Bowel sounds are active. EXTREMITIES: Varicosities. Pigmentation of the skin of the lower extremities. No calf tenderness. NEUROLOGIC: Reflexes 1+ with no gross motor deficits. Cranial nerves grossly intact. The patient is alert and oriented and cooperative. Assessment and Plan Assessment and Plan IMPRESSION 1. Acute on chronic respiratory failure. 2. Obstructive sleep apnea syndrome. 3. COPD with acute exacerbation. 4. Chronic bronchitis and emphysema. 5. Hypertension. 6. Diabetes mellitus type 2. 7. Nicotine dependency. 8. Chronic neck pain with cervical disk disease Plan : 1. Wean o2 to 3 L. 2. Continue CPAP at HS and PRN daytime. 3. Taper solumedrol to 40 mg q8h. 4. Duoneb nebs qid. 5. Continue antibiotics , Zithromax. 6. PFT , BMP ABG in am. 7. Symbicort 160/4.5 mcg , 2 puffs bid Bernie Mason MD Nov 29, 2016 19:32
--- NOTE | 2016-11-29 20:27 | RADRPT ---
EXAM DATE/TIME: 11/29/2016 18:34 [facility] COMPARISON: CHEST SINGLE AP, November 28, 2016, 14:07. INDICATIONS : Shortness of breath. MEDICAL HISTORY : Cardiovascular disease. Hypertension. Diabetes mellitus type 2. SURGICAL HISTORY : Fusion, cervical. ENCOUNTER: Subsequent ACUITY: 3 days PAIN SCORE: 0/10 LOCATION: Bilateral chest FINDINGS: PA and lateral views of the chest demonstrate the lungs to be symmetrically aerated without evidence of mass, infiltrate or effusion. The cardiomediastinal contours are unremarkable. Osseous structure s are intact. CONCLUSION: No acute disease. No significant change has occurred. Jhony Paredes MD on November 29, 2016 at 20:25 Board Certified Radiologist. This report was verified electronically.
[2016-11-29] MEDS: MONTELUKAST SODIUM 10 MG TAB PO SCH (21:12)
[2016-11-29] MEDS: NIACIN 500 MG EXTENDED RELEASE TAB PO SCH (21:12)
[2016-11-29] MEDS: AZITHROMYCIN INJ 500 MG in SODIUM CHLOR 0.9% 250 ML INJ 250 ML IV SCH (21:12)
[2016-11-29] MEDS: cefTRIAXone INJ 1,000 MG in SODIUM CHLORIDE 0.9% INJ 100 ML IV SCH (21:13)
[2016-11-29] MEDS: GABAPENTIN 300 MG CAP PO SCH (21:19)
[2016-11-30] VITALS (14 sets, daily range): BP systolic 106–130; BP diastolic 56–81; PULSE 53–74; RESP 18–29; TEMP 97–98.6; O2SAT 93–98
[2016-11-30] MEDS: HEPARIN SODIUM - SQ 10,000 UNITS/ML VIAL SQ SCH ×3 (00:10→23:38)
[2016-11-30] MEDS: traMADol HCL 50 MG TAB PO PRN ×3 (00:10→23:38)
[2016-11-30] MEDS: RESP: ALBUTEROL 2.5 MG/IPRATROPIUM 0.5 MG NEB (SCH) NEB ×4 (04:13→16:26)
[2016-11-30] MEDS: methylPREDNISolone SOD SUCC 40 MG/1 ML VIAL IV PUSH SCH ×2 (05:41→22:03)
[2016-11-30 05:53] LABS: HEMATOCRIT 38.2 % (39.0-51.0); MEAN CORPUSCULAR HEMOGLOBIN 31.2 PG (27.0-34.0); MEAN CORPUSCULAR HGB CONC 33.5 % (32.0-36.0); PLATELET COUNT 176 TH/MM3 (150-450); RED BLOOD COUNT 4.11 MIL/MM3 (4.50-5.90); RED CELL DISTRIBUTION WIDTH 14.5 % (11.6-17.2); REVIEW FLAG FINAL; WHITE BLOOD COUNT 10.7 TH/MM3 (4.0-11.0)
[2016-11-30 06:16] LABS: BICARBONATE 26.1 MEQ/L (21.0-32.0); POTASSIUM 4.6 MEQ/L (3.5-5.1)
[2016-11-30] MEDS: INSULIN ASPART SUPPLEMENTAL SCALE SQ SCH ×4 (08:00→22:51)
[2016-11-30] MEDS: ASPIRIN 81 MG CHEW TAB CHEW SCH (08:17)
[2016-11-30] MEDS: DOCUSATE SODIUM 50 MG/SENNA 8.6 MG TAB PO SCH ×2 (08:17→22:03)
[2016-11-30] MEDS: PRAVASTATIN SOD 10 MG TAB PO SCH (08:17)
[2016-11-30] MEDS: METOPROLOL SUCCINATE 50 MG EXTENDED RELEASE TAB PO SCH (08:17)
[2016-11-30] MEDS: SODIUM CHLORIDE 0.9% FLUSH 10 ML FLUSH IV FLUSH SCH ×2 (08:18→21:00)
[2016-11-30] MEDS: LISINOPRIL 20 MG TAB PO SCH (08:18)
[2016-11-30] MEDS: MELOXICAM 15 MG TAB PO SCH (08:18)
[2016-11-30] MEDS: PANTOPRAZOLE SOD 20 MG DELAYED RELEASE TAB PO SCH (08:18)
[2016-11-30] MEDS: BUDESONIDE-FORMOTEROL 160/4.5 MCG INHALER INH SCH ×2 (08:19→22:04)
--- NOTE | 2016-11-30 09:33 | PD.CARD.PN ---
Subjective Subjective Remarks no major complaints still uses O2 bipap Objective Medications Current Medications Medications (Trade) Dose Ordered Sig/Jailene Route Start Time Stop Time Status Last Admin (NS Flush) 2 ml UNSCH PRN IV FLUSH 11/28/16 00:15 (NS Flush) 2 ml BID IV FLUSH 11/28/16 09:00 11/30/16 08:18 (Heparin Inj) 5,000 units Q12H SQ 11/28/16 00:15 11/30/16 00:10 (Narcan Inj) 0.4 mg UNSCH PRN IV PUSH 11/28/16 00:15 (Consuelo-Colace) 1 tab BID PO 11/28/16 09:00 11/30/16 08:17 (Milk Of Magnesia Liq) 30 ml Q12H PRN PO 11/28/16 00:15 (Senokot) 17.2 mg Q12H PRN PO 11/28/16 00:15 (Dulcolax Supp) 10 mg DAILY PRN RECTAL 11/28/16 00:15 (Lactulose Liq) 30 ml DAILY PRN PO 11/28/16 00:15 Ceftriaxone Sodium 1000 mg/ Sodium Chloride 100 ml @ 200 mls/hr Q24H IV 11/28/16 21:00 11/29/16 21:13 Azithromycin 500 mg/Sodium Chloride 250 ml @ 250 mls/hr Q24H IV 11/28/16 22:00 11/29/16 21:12 (Duoneb Neb) 1 ampule Q4HR NEB PRN NEB 11/28/16 00:15 (D50w (Vial) Inj) 50 ml UNSCH PRN IV PUSH 11/28/16 00:15 (Glucagon Inj) 1 mg UNSCH PRN OTHER 11/28/16 00:15 (NovoLOG SUPPLEMENTAL SCALE) 1 ACHS SLIDING SCALE SQ 11/28/16 08:00 11/30/16 08:00 (Aspirin Chew) 81 mg DAILY CHEW 11/28/16 09:00 11/30/16 08:17 (Neurontin) 300 mg HS PO 11/28/16 21:00 11/29/16 21:19 (Mobic) 15 mg DAILY PO 11/28/16 09:00 11/30/16 08:18 (Singulair) 10 mg HS PO 11/28/16 21:00 11/29/16 21:12 (Pravachol) 10 mg DAILY PO 11/28/16 09:00 11/30/16 08:17 (Prinivil) 40 mg DAILY PO 11/28/16 09:00 11/30/16 08:18 Patient Own Medication PT OWN MED: Dulaglut... Q7D SQ 12/01/16 09:00 Patient Own Medication PT OWN MED: Ketoti... BID PRN EACH EYE 11/28/16 00:30 (Toprol Xl) 100 mg DAILY PO 11/28/16 09:00 11/30/16 08:17 (Slo-Niacin) 1,000 mg HS PO 11/28/16 21:00 11/29/16 21:12 (Protonix) 20 mg DAILY PO 11/28/16 09:00 11/30/16 08:18 (Duoneb Neb) 1 ampule Q4HR NEB NEB 11/28/16 16:00 11/30/16 08:50 (Symbicort 160-4.5 Inh) 2 puff Q12HR INH 11/28/16 21:00 11/30/16 08:19 (Xanax) 0.25 mg Q6H PRN PO 11/28/16 18:30 11/29/16 17:27 (Ultram) 50 mg QID PRN PO 11/28/16 20:15 11/30/16 00:10 Sodium Chloride 1,000 ml @ 0 mls/hr Q0M IV 11/29/16 12:45 (SoluMEDROL INJ) 40 mg Q8HR IV PUSH 11/29/16 22:00 11/30/16 05:41 Vital Signs / I&O Vital Signs Date Time Temp Pulse Resp B/P (MAP) Pulse Ox O2 Delivery O2 Flow Rate FiO2 11/30/16 08:50 95 cpap 2.00 11/30/16 06:00 74 11/30/16 04:15 98 BiPAP 11/30/16 04:00 98.4 62 20 116/64 (81) 95 11/30/16 04:00 62 11/30/16 02:00 65 11/30/16 00:00 98.0 61 18 111/66 (81) 98 11/30/16 00:00 61 11/29/16 23:57 99 BiPAP 11/29/16 22:00 66 11/29/16 20:00 98.0 78 52 135/65 (88) 87 11/29/16 20:00 78 11/29/16 18:00 54 11/29/16 16:00 60 11/29/16 16:00 98.3 60 22 146/63 (90) 98 11/29/16 14:00 59 11/29/16 12:00 98.0 66 22 107/63 (78) 94 11/29/16 12:00 66 11/29/16 10:00 65 I/O 11/29/16 11/29/16 11/29/16 11/30/16 11/30/16 11/30/16 07:00 15:00 23:00 07:00 15:00 23:00 Intake Total 1345 ml 300 ml 850 ml 700 ml Output Total 425 ml 500 ml 350 ml Balance 920 ml 300 ml 350 ml 350 ml Intake Oral 480 ml 600 ml 350 ml IV Total 865 ml 300 ml 250 ml 350 ml Output Urine Total 425 ml 500 ml 350 ml # Voids 1 # Bowel Movements 0 Physical Exam heart s1s2 lung clear Laboratory Laboratory Tests Test 11/30/16 05:43 White Blood Count 10.7 TH/MM3 Red Blood Count 4.11 MIL/MM3 Hemoglobin 12.8 GM/DL Hematocrit 38.2 % Mean Corpuscular Volume 93.0 FL Mean Corpuscular Hemoglobin 31.2 PG Mean Corpuscular Hemoglobin Concent 33.5 % Red Cell Distribution Width 14.5 % Platelet Count 176 TH/MM3 Mean Platelet Volume 8.9 FL Blood Urea Nitrogen 40 MG/DL Creatinine 1.28 MG/DL Random Glucose 254 MG/DL Calcium Level 8.4 MG/DL Sodium Level 137 MEQ/L Potassium Level 4.6 MEQ/L Chloride Level 103 MEQ/L Carbon Dioxide Level 26.1 MEQ/L Anion Gap 8 MEQ/L Estimat Glomerular Filtration Rate 59 ML/MIN Assessment and Plan Assessment and Plan echo noted continue supportive care and copd treatment Makayla Kramer MD Nov 30, 2016 09:33
--- NOTE | 2016-11-30 12:23 | HHI.PR ---
Subjective Remarks has less hematuria but at the end of urination patient has a chichi blood drips. It hurts to urinate as per patient no garber at present breathing better still cough and wheez ROS for 10 point system is otherwise unremarkable Objective Objective Results - Vital Signs Date Time Temp Pulse Resp B/P (MAP) Pulse Ox O2 Delivery O2 Flow Rate FiO2 11/30/16 08:50 95 cpap 2.00 11/30/16 08:00 98.6 54 22 121/71 (88) 94 11/30/16 08:00 56 11/30/16 06:00 74 11/30/16 04:15 98 BiPAP 11/30/16 04:00 98.4 62 20 116/64 (81) 95 11/30/16 04:00 62 11/30/16 02:00 65 11/30/16 00:00 98.0 61 18 111/66 (81) 98 11/30/16 00:00 61 11/29/16 23:57 99 BiPAP 11/29/16 22:00 66 11/29/16 20:00 98.0 78 52 135/65 (88) 87 11/29/16 20:00 78 11/29/16 18:00 54 11/29/16 16:00 60 11/29/16 16:00 98.3 60 22 146/63 (90) 98 11/29/16 14:00 59 I/O 11/29/16 11/29/16 11/29/16 11/30/16 11/30/16 11/30/16 07:00 15:00 23:00 07:00 15:00 23:00 Intake Total 1345 ml 300 ml 850 ml 700 ml Output Total 425 ml 500 ml 350 ml Balance 920 ml 300 ml 350 ml 350 ml Intake Oral 480 ml 600 ml 350 ml IV Total 865 ml 300 ml 250 ml 350 ml Output Urine Total 425 ml 500 ml 350 ml # Voids 1 # Bowel Movements 0 Result Diagram: 11/30/1643 11/30/16542 Other Results Laboratory Tests Test 11/30/16 05:43 White Blood Count 10.7 Red Blood Count 4.11 Hemoglobin 12.8 Hematocrit 38.2 Mean Corpuscular Volume 93.0 Mean Corpuscular Hemoglobin 31.2 Mean Corpuscular Hemoglobin Concent 33.5 Red Cell Distribution Width 14.5 Platelet Count 176 Mean Platelet Volume 8.9 Blood Urea Nitrogen 40 Creatinine 1.28 Random Glucose 254 Calcium Level 8.4 Sodium Level 137 Potassium Level 4.6 Chloride Level 103 Carbon Dioxide Level 26.1 Anion Gap 8 Estimat Glomerular Filtration Rate 59 Date/Time Source Procedure Growth Status 11/27/16 18:50 Blood Peripheral Aerobic Blood Culture - Preliminary NO GROWTH IN 3 DAYS Resulted 11/27/16 18:50 Anaerobic Blood Culture - Preliminary Staph Sp Coagulase Negative Resulted 11/28/16 12:44 Nasal Aspirate Influenza Types A,B Antigen (JAMIN) - Final NEGATIVE FOR FLU A AND B ANTIGEN.... Complete 11/29/16 06:30 Urine Clean Catch Urine Culture - Preliminary NO GROWTH IN 24 HOURS. Resulted Physical Exam Physical Exam GENERAL: The patient is alert and oriented, morbidly obese lying in bed with a Venti-mask on at present. Some shortness of breath. VITAL SIGNS: reviewed HEENT: Head is atraumatic, normocephalic. Eyes negative conjunctival icterus. Mouth unremarkable. NECK: Supple. Negative increase in JVD. Central trachea. CHEST: Decreased distant air entry bibasilarly, with some expiratory scattered wheeze and some inspiratory wheeze. And the patient has occ crackles in the bases. A couple of rhonchi in the bases. CARDIOVASCULAR: S1 and S2 audible. Unable to hear any S3 gallop. ABDOMEN: Soft, doughy. Non-tender. No organomegaly. Positive bowel sounds. EXTREMITIES: No cyanosis or pedal edema appreciated. PATHOLOGY SUPERVISOR: Grossly intact. SKIN: Warm and moist. PSYCHIATRIC: Appropriate mood and affect. A/P Assessment and Plan 1. Respiratory failure. 2. Mild respiratory acidosis. 3. COPD exacerbation. 4. Acute bronchitis. 5. Leukocytosis secondary to above. 6. Sepsis on admission. 7. Lactic acidosis. 8. Hypomagnesemia. 9. Diabetes. 10. Hypertension. 11. Hyperlipidemia. PLAN 1. seen in ICU. 2. IV hydration. 3. Breathing treatment. 4. IV antibiotic. 5. IV steroids. 6. Pulmonary consult and input jana . 7. wellness consultant and input appreciated. 2-D echo report reviewed 8. Labs reviewed. 9. wnl lactic acid. 10. Within normal white blood cell count 11. Continue home medications as indicated. 12. Sliding scale insulin coverage. 13. We will hold metformin because of lactic acidosis and IV contrast use. 14. Breathing treatment on p.r.n. basis. 15. Discussed with the patient. 16. Discussed with RN. 17. monitor hematuria plan for urology consult Patient is stable to transfer to floor Further recommendations as the patient progresses. Jas Irizarry MD Nov 30, 2016 12:23
--- NOTE | 2016-11-30 19:31 | HHI.PR ---
Subjective Remarks Sleepy and on the CPAP mask. CXR is clear. No chest pain. Good output. Has no cough. Objective Vital Signs Date Time Temp Pulse Resp B/P (MAP) Pulse Ox O2 Delivery O2 Flow Rate FiO2 11/30/16 16:00 98.3 56 22 106/56 (73) 94 11/30/16 16:00 63 11/30/16 14:00 59 11/30/16 12:00 98.3 55 24 117/71 (86) 94 11/30/16 12:00 55 11/30/16 10:00 57 11/30/16 08:50 95 cpap 2.00 11/30/16 08:00 98.6 54 22 121/71 (88) 94 11/30/16 08:00 56 11/30/16 06:00 74 11/30/16 04:15 98 BiPAP 11/30/16 04:00 98.4 62 20 116/64 (81) 95 11/30/16 04:00 62 11/30/16 02:00 65 11/30/16 00:00 98.0 61 18 111/66 (81) 98 11/30/16 00:00 61 11/29/16 23:57 99 BiPAP 11/29/16 22:00 66 11/29/16 20:00 98.0 78 52 135/65 (88) 87 11/29/16 20:00 78 I/O 11/29/16 11/29/16 11/29/16 11/30/16 11/30/16 11/30/16 07:00 15:00 23:00 07:00 15:00 23:00 Intake Total 1345 ml 300 ml 850 ml 700 ml Output Total 425 ml 500 ml 350 ml Balance 920 ml 300 ml 350 ml 350 ml Intake Oral 480 ml 600 ml 350 ml IV Total 865 ml 300 ml 250 ml 350 ml Output Urine Total 425 ml 500 ml 350 ml # Voids 1 # Bowel Movements 0 Result Diagram: 11/30/1643 11/30/16542 Objective Remarks GENERAL: This very obese middle-aged white male who is awake HEENT: Head normocephalic. Pupils reactive and equal. Tongue is moist. Throat was clear. Nasal mucosa is clear. NECK: No bruits. No thyroid enlargement or lymphadenopathy. CHEST: Distant breath sounds with occasional wheezes throughout both lung longo. Prolonged expirations. HEART: The heart sounds are regular S1-S2 with no murmur, no S3 gallop. ABDOMEN: Obese, protuberant without masses. No organomegaly or tenderness. Bowel sounds are active. EXTREMITIES: Varicosities. Pigmentation of the skin of the lower extremities. No calf tenderness. NEUROLOGIC: Reflexes 1+ with no gross motor deficits. The patient is cooperative. Assessment and Plan Assessment and Plan IMPRESSION 1. Acute on chronic respiratory failure. 2. Obstructive sleep apnea syndrome. 3. COPD with acute exacerbation. 4. Chronic bronchitis and emphysema. 5. Hypertension. 6. Diabetes mellitus type 2. 7. Nicotine dependency. 8. Chronic neck pain with cervical disk disease Plan : 1. Wean o2 to 2 L. 2. Continue CPAP at HS and PRN daytime. 3. Taper solumedrol to 40 mg q12 h. 4. Duoneb nebs qid. 5. Continue antibiotics , Zithromax.Rocephin 6. PFT , BMP in am. 7. Symbicort 160/4.5 mcg , 2 puffs bid 8. Daily Lasix 20 mg Bernie Mason MD Nov 30, 2016 19:31
[2016-11-30] MEDS: GABAPENTIN 300 MG CAP PO SCH (22:03)
[2016-11-30] MEDS: MONTELUKAST SODIUM 10 MG TAB PO SCH (22:03)
[2016-11-30] MEDS: cefTRIAXone INJ 1,000 MG in SODIUM CHLORIDE 0.9% INJ 100 ML IV SCH (22:03)
[2016-11-30] MEDS: NIACIN 500 MG EXTENDED RELEASE TAB PO SCH (22:04)
[2016-11-30] MEDS: AZITHROMYCIN INJ 500 MG in SODIUM CHLOR 0.9% 250 ML INJ 250 ML IV SCH (22:51)
[2016-12-01] VITALS (11 sets, daily range): BP systolic 124–149; BP diastolic 61–87; PULSE 50–79; RESP 18–20; TEMP 97.3–97.8; O2SAT 93–96
[2016-12-01] MEDS: RESP: ALBUTEROL 2.5 MG/IPRATROPIUM 0.5 MG NEB (SCH) NEB ×7 (01:13→23:25)
[2016-12-01] MEDS ORDERED: DULAGLUTIDE 1.5 MG SQ SCH (09:00)
[2016-12-01] MEDS: INSULIN ASPART SUPPLEMENTAL SCALE SQ SCH ×4 (09:04→20:54)
[2016-12-01] MEDS: METOPROLOL SUCCINATE 50 MG EXTENDED RELEASE TAB PO SCH (09:04)
[2016-12-01] MEDS: methylPREDNISolone SOD SUCC 40 MG/1 ML VIAL IV PUSH SCH (09:04)
[2016-12-01] MEDS: ASPIRIN 81 MG CHEW TAB CHEW SCH (09:05)
[2016-12-01] MEDS: SODIUM CHLORIDE 0.9% FLUSH 10 ML FLUSH IV FLUSH SCH ×2 (09:05→20:34)
[2016-12-01] MEDS: LISINOPRIL 20 MG TAB PO SCH (09:05)
[2016-12-01] MEDS: DOCUSATE SODIUM 50 MG/SENNA 8.6 MG TAB PO SCH ×2 (09:05→20:33)
[2016-12-01] MEDS: PANTOPRAZOLE SOD 20 MG DELAYED RELEASE TAB PO SCH (09:05)
[2016-12-01] MEDS: PRAVASTATIN SOD 10 MG TAB PO SCH (09:05)
[2016-12-01] MEDS: BUDESONIDE-FORMOTEROL 160/4.5 MCG INHALER INH SCH ×2 (09:06→20:55)
[2016-12-01] MEDS: MELOXICAM 15 MG TAB PO SCH (09:46)
[2016-12-01] MEDS: traMADol HCL 50 MG TAB PO PRN ×3 (09:46→23:15)
--- NOTE | 2016-12-01 12:44 | HHI.PR ---
Subjective Remarks has less hematuria but at the end of urination patient has a chichi blood drips. It hurts to urinate as per patient no garber at present breathing better still cough and wheez ROS for 10 point system is otherwise unremarkable Objective Objective Results - Vital Signs Date Time Temp Pulse Resp B/P (MAP) Pulse Ox O2 Delivery O2 Flow Rate FiO2 12/01/16 12:00 97.8 55 18 124/65 (84) 96 12/01/16 10:46 18 12/01/16 08:00 97.5 61 18 149/75 (99) 95 12/01/16 07:58 94 BiPAP 2.00 12/01/16 07:52 79 12/01/16 04:37 93 BiPAP 2.00 12/01/16 04:00 97.8 68 20 133/77 (95) 93 12/01/16 02:35 56 12/01/16 00:00 97.3 74 20 133/64 (87) 94 11/30/16 23:00 97.0 58 20 125/65 (85) 93 11/30/16 20:00 53 29 130/81 (97) 94 11/30/16 20:00 53 11/30/16 18:00 57 11/30/16 16:00 98.3 56 22 106/56 (73) 94 11/30/16 16:00 63 11/30/16 14:00 59 I/O 11/30/16 11/30/16 11/30/16 12/01/16 12/01/16 12/01/16 07:00 15:00 23:00 07:00 15:00 23:00 Intake Total 700 ml 900 ml 250 ml Output Total 350 ml 1000 ml Balance 350 ml -100 ml 250 ml Intake Oral 350 ml 500 ml IV Total 350 ml 400 ml 250 ml Output Urine Total 350 ml 1000 ml # Voids 1 4 # Bowel Movements 4 Result Diagram: 11/30/16 0543 11/30/16 0543 Other Results Date/Time Source Procedure Growth Status 11/27/16 18:50 Blood Peripheral Aerobic Blood Culture - Preliminary NO GROWTH IN 4 DAYS Resulted 11/27/16 18:50 Anaerobic Blood Culture - Preliminary Staph Sp Coagulase Negative Resulted 11/28/16 12:44 Nasal Aspirate Influenza Types A,B Antigen (JAMIN) - Final NEGATIVE FOR FLU A AND B ANTIGEN.... Complete 11/29/16 06:30 Urine Clean Catch Urine Culture - Final NO GROWTH IN 48 HOURS. Complete Physical Exam Physical Exam GENERAL: The patient is alert and oriented, morbidly obese lying in bed with a Venti-mask on at present. Some shortness of breath. VITAL SIGNS: reviewed HEENT: Head is atraumatic, normocephalic. Eyes negative conjunctival icterus. Mouth unremarkable. NECK: Supple. Negative increase in JVD. Central trachea. CHEST: Decreased distant air entry bibasilarly, with some expiratory scattered wheeze and some inspiratory wheeze. And the patient has occ crackles in the bases. A couple of rhonchi in the bases. CARDIOVASCULAR: S1 and S2 audible. Unable to hear any S3 gallop. ABDOMEN: Soft, doughy. Non-tender. No organomegaly. Positive bowel sounds. EXTREMITIES: No cyanosis or pedal edema appreciated. WAREHOUSE SHIPPING SUPERVISOR: Grossly intact. SKIN: Warm and moist. PSYCHIATRIC: Appropriate mood and affect. A/P Assessment and Plan 1. Respiratory failure. 2. Mild respiratory acidosis. 3. COPD exacerbation. 4. Acute bronchitis. 5. Leukocytosis secondary to above. 6. Sepsis on admission. 7. Lactic acidosis. 8. Hypomagnesemia. 9. Diabetes. 10. Hypertension. 11. Hyperlipidemia. PLAN 1. seen o floor. 2. IV hydration. 3. Breathing treatment. 4. antibiotic. 5. steroids. 6. Pulmonary consult and input jana . 7. behavioral health consultant and input appreciated. 2-D echo report reviewed 8. Labs reviewed. 9. wnl lactic acid. 10. Within normal white blood cell count 11. Continue home medications as indicated. 12. Sliding scale insulin coverage. 13. hold metformin 14. Breathing treatment on p.r.n. basis. 15. Discussed with the patient. 16. Discussed with RN. 17. monitor hematuria plan for urology consult Patient is stable to transfer to floor Further recommendations as the patient progresses. Jas Irizarry MD Dec 01, 2016 12:44
[2016-12-01] MEDS: HEPARIN SODIUM - SQ 10,000 UNITS/ML VIAL SQ SCH ×2 (12:49→23:15)
--- NOTE | 2016-12-01 17:55 | RADRPT ---
EXAM DATE/TIME: 12/01/2016 14:18 [facility] COMPARISON: No previous studies available for comparison. INDICATIONS : Hematuria. MEDICAL HISTORY : Hypertension. Diabetic. SURGICAL HISTORY : Cardiac catheterization. Colonoscopy. Cervical fusion. ENCOUNTER: Initial ACUITY: 1 day PAIN SCORE: 0/10 LOCATION: Bilateral flank MEASUREMENTS: RIGHT KIDNEY: 14.0 x 6.3 x 6.2 cm LEFT KIDNEY: 14.4 x 6.3 x 7.1 cm FINDINGS: RIGHT KIDNEY: Renal cortex is normal in thickness and echotexture. No hydronephrosis, stone, or mass. LEFT KIDNEY: Renal cortex is normal in thickness and echotexture. No hydronephrosis, stone, or mass. BLADDER: Layering echogenic non-shadowing debris within the urinary bladder. No stones observed. CONCLUSION: 1. Small volume layering debris within the bladder without stones. James Ivory Jr., MD on December 01, 2016 at 17:48 Board Certified Radiologist. This report was verified electronically.
--- NOTE | 2016-12-01 18:41 | HHI.PR ---
Subjective Remarks Alert and up eating dinner.On o2 2 L CXR is clear. No chest pain. No fever. Has no cough. Objective Vital Signs Date Time Temp Pulse Resp B/P (MAP) Pulse Ox O2 Delivery O2 Flow Rate FiO2 12/01/16 17:43 18 12/01/16 16:00 97.6 65 18 144/87 (106) 94 12/01/16 12:00 97.8 55 18 124/65 (84) 96 12/01/16 08:00 97.5 61 18 149/75 (99) 95 12/01/16 07:58 94 BiPAP 2.00 12/01/16 07:52 79 12/01/16 04:37 93 BiPAP 2.00 12/01/16 04:00 97.8 68 20 133/77 (95) 93 12/01/16 02:35 56 12/01/16 00:00 97.3 74 20 133/64 (87) 94 11/30/16 23:00 97.0 58 20 125/65 (85) 93 11/30/16 20:00 53 29 130/81 (97) 94 11/30/16 20:00 53 I/O 11/30/16 11/30/16 11/30/16 12/01/16 12/01/16 12/01/16 07:00 15:00 23:00 07:00 15:00 23:00 Intake Total 700 ml 900 ml 250 ml 1000 ml Output Total 350 ml 1000 ml Balance 350 ml -100 ml 250 ml 1000 ml Intake Oral 350 ml 500 ml 1000 ml IV Total 350 ml 400 ml 250 ml Output Urine Total 350 ml 1000 ml # Voids 1 4 3 # Bowel Movements 4 1 Result Diagram: 11/30/16 0543 11/30/16 0543 Objective Remarks GENERAL: This very obese middle-aged white male who is awake HEENT: Head normocephalic. Pupils reactive and equal. Tongue is moist. Throat was clear. Nasal mucosa is clear. NECK: No bruits. No thyroid enlargement or lymphadenopathy. CHEST: Distant breath sounds with occasional wheezes throughout both lung longo. Prolonged expirations. HEART: The heart sounds are regular S1-S2 with no murmur, no S3 gallop. ABDOMEN: Obese, protuberant without masses. No organomegaly or tenderness. Bowel sounds are active. EXTREMITIES: Varicosities. Pigmentation of the skin of the lower extremities. No calf tenderness. NEUROLOGIC: Reflexes 1+ with no gross motor deficits. Alert , Oriented. Assessment and Plan Assessment and Plan IMPRESSION 1. Acute on chronic respiratory failure. 2. Obstructive sleep apnea syndrome. 3. COPD with acute exacerbation. 4. Chronic bronchitis and emphysema. 5. Hypertension. 6. Diabetes mellitus type 2. 7. Nicotine dependency. 8. Chronic neck pain with cervical disk disease Plan : 1. Wean o2 to 2 L. 2. Continue CPAP at HS and PRN daytime. 3. D/C solumedrol 4. Duoneb nebs qid. 5. D/C Zithromax. 6. Stop Rocephin in am and add Ceftin 500 mg bid X 7 days 7. Symbicort 160/4.5 mcg , 2 puffs bid 8. Up with help. Bernie Mason MD Dec 01, 2016 18:41
[2016-12-01] MEDS: GABAPENTIN 300 MG CAP PO SCH (20:33)
[2016-12-01] MEDS: NIACIN 500 MG EXTENDED RELEASE TAB PO SCH (20:33)
[2016-12-01] MEDS: MONTELUKAST SODIUM 10 MG TAB PO SCH (20:34)
[2016-12-01] MEDS: cefTRIAXone INJ 1,000 MG in SODIUM CHLORIDE 0.9% INJ 100 ML IV SCH (20:34)
[2016-12-01] MEDS: predniSONE 20 MG TAB PO SCH (20:54)
[2016-12-02] VITALS: BP 130/73; PULSE 107; RESP 20; TEMP 97.2; O2SAT 96
[2016-12-02] MEDS: RESP: ALBUTEROL 2.5 MG/IPRATROPIUM 0.5 MG NEB (SCH) NEB ×3 (03:17→11:42)
[2016-12-02 04:00] VITALS: BP 140/82; PULSE 56; RESP 20; TEMP 97.7; O2SAT 96
[2016-12-02] MEDS: traMADol HCL 50 MG TAB PO PRN (06:21)
[2016-12-02 07:39] VITALS: O2SAT 95
[2016-12-02 07:40] VITALS: BP 155/87; PULSE 66; RESP 20; TEMP 97.7; O2SAT 93
[2016-12-02] MEDS: predniSONE 20 MG TAB PO SCH (08:43)
[2016-12-02] MEDS: ASPIRIN 81 MG CHEW TAB CHEW SCH (08:43)
[2016-12-02] MEDS: LISINOPRIL 20 MG TAB PO SCH (08:43)
[2016-12-02] MEDS: PRAVASTATIN SOD 10 MG TAB PO SCH (08:43)
[2016-12-02] MEDS: MELOXICAM 15 MG TAB PO SCH (08:43)
[2016-12-02] MEDS: METOPROLOL SUCCINATE 50 MG EXTENDED RELEASE TAB PO SCH (08:44)
[2016-12-02] MEDS: DOCUSATE SODIUM 50 MG/SENNA 8.6 MG TAB PO SCH (08:44)
[2016-12-02] MEDS: PANTOPRAZOLE SOD 20 MG DELAYED RELEASE TAB PO SCH (08:44)
[2016-12-02 08:55] LABS: MEAN CELL VOLUME 92.2 FL (80.0-100.0); MEAN CORPUSCULAR HEMOGLOBIN 30.8 PG (27.0-34.0); MEAN CORPUSCULAR HGB CONC 33.4 % (32.0-36.0); PLATELET COUNT 176 TH/MM3 (150-450); RED BLOOD COUNT 4.12 MIL/MM3 (4.50-5.90); RED CELL DISTRIBUTION WIDTH 14.3 % (11.6-17.2); REVIEW FLAG FINAL; WHITE BLOOD COUNT 8.9 TH/MM3 (4.0-11.0)
[2016-12-02] MEDS: BUDESONIDE-FORMOTEROL 160/4.5 MCG INHALER INH SCH (09:01)
[2016-12-02] MEDS: INSULIN ASPART SUPPLEMENTAL SCALE SQ SCH ×2 (09:02→15:29)
[2016-12-02] MEDS: SODIUM CHLORIDE 0.9% FLUSH 10 ML FLUSH IV FLUSH SCH (09:03)
[2016-12-02 09:50] VITALS: PULSE 55
--- NOTE | 2016-12-02 11:05 | MB ---
cc: KELVIN WILSON DATE OF CONSULTATION 12/02/2016 REASON FOR CONSULTATION Mr. Almonte is a 61-year-old male who presented to the emergency room with shortness of breath. The patient has a history of sleep apnea. Shortly after admission, attempt was made to place a Matthews catheter and this was unsuccessful. After this, the patient developed gross hematuria. He denies any prior history of hematuria. He does note lower urinary tract symptoms when he has nocturia three to four times at night. He also has a history of diabetes. He did not have any chest pain on admission. He was also to have a fever of 101.7 at the time of admission. PAST MEDICAL HISTORY Noted for: 1. Sleep apnea 2. COPD 3. Diabetes 4. Chronic headaches and neck pain 5. Hypertension 6. Prior fall from a ladder in 2003 resulting in back and neck injury. PAST SURGERIES Noted for: 1. Cervical disk surgery 2. Colonoscopy 3. Cardiac catheterization FAMILY HISTORY No family history of malignancy is noted. SOCIAL HISTORY Noted for a prior smoking history in the past. No alcohol. Denies any drug use. ALLERGIES He has no allergies. MEDICATIONS For medications, please refer to the chart. REVIEW OF SYSTEMS He denies chest pain, but notes shortness of breath. He denies abdominal pain. He also complains of lower extremity swelling. He does have occasional back and neck pain and occasional headaches are noted. He denies any prior voiding complaints. Denies any prior history of gross hematuria. He does note a history of anxiety and depression. The remaining review of systems were reviewed and are negative. PHYSICAL EXAM VITALS: Temperature is 97.7, heart rate 66, respiratory rate 20, blood pressure 155/87. GENERAL: He is an obese 51-year-old male in no acute distress. HEENT: Normocephalic, atraumatic. Pupils equal, round, and reactive to light. Extraocular movements intact. NECK: Supple. HEART: Regular rate and rhythm. LUNGS: Diminished breath sounds at the bases. ABDOMEN: Soft, nontender, and nondistended. : Uncircumcised phallus with blood at the tip of the meatus. Testes are descended, nontender. Condylomata is noted on the scrotum. EXTREMITIES: Show 1-2+ edema. NEURO: CNII-XII intact Skin: no lesions Psych: generalized mood LABORATORY DATA White count 8.9, hemoglobin 12.7, hematocrit 38.0, platelet count of 176. Sodium 137, potassium 4.6, chloride 103, CO2 26.1, BUN 40, creatinine 1.2, glucose of 254. Coag, his PT is 12.2, INR 1.1, PTT is 29.5. Urinalysis from 11/29 does show blood in the urine, 168 red cells and 36 white cells. Renal bladder ultrasound was performed demonstrating normal kidneys bilaterally with some echogenic material with debris within the bladder which is probable blood. No evidence of any stones were identified. ASSESSMENT This is a 51-year-old male admitted with shortness breath with history of sleep apnea and COPD with traumatic catheterization causing hematuria. RECOMMENDATIONS I recommend p.o. hydration as tolerated and with voiding urine will eventually clear. Would not recommend workup for gross hematuria as hematuria was noted after attempt at Matthews placement over the weekend. Renal bladder ultrasound within normal limits with probable debris in the bladder most likely old blood. No intervention required at this time. Thank you for the consult and allowing me to participate in the care of this patient. Kelvin PEPE /10:28 AM /10:43 AM MTDAlexi
--- NOTE | 2016-12-02 11:21 | HHI.PR ---
Subjective Remarks Feeling much better has only a few drops at the end of urination chichi blood. no garber at present breathing better Occasional cough no complaint ROS for 10 point system is otherwise unremarkable Objective Objective Results - Vital Signs Date Time Temp Pulse Resp B/P (MAP) Pulse Ox O2 Delivery O2 Flow Rate FiO2 12/02/16 07:40 97.7 66 20 155/87 (109) 93 12/02/16 07:39 95 12/02/16 04:00 97.7 56 20 140/82 (101) 96 12/02/16 00:00 97.2 107 20 130/73 (92) 96 12/01/16 21:13 50 12/01/16 20:00 97.8 63 18 137/61 (86) 96 12/01/16 17:43 18 12/01/16 16:00 97.6 65 18 144/87 (106) 94 12/01/16 12:00 97.8 55 18 124/65 (84) 96 I/O 12/01/16 12/01/16 12/01/16 12/02/16 12/02/16 12/02/16 07:00 15:00 23:00 07:00 15:00 23:00 Intake Total 250 ml 1340 ml Balance 250 ml 1340 ml Intake Oral 1240 ml IV Total 250 ml 100 ml # Voids 4 4 # Bowel Movements 4 2 Result Diagram: 12/02/16 0716 11/30/16 0543 Other Results Laboratory Tests Test 12/02/16 07:16 White Blood Count 8.9 Red Blood Count 4.12 Hemoglobin 12.7 Hematocrit 38.0 Mean Corpuscular Volume 92.2 Mean Corpuscular Hemoglobin 30.8 Mean Corpuscular Hemoglobin Concent 33.4 Red Cell Distribution Width 14.3 Platelet Count 176 Mean Platelet Volume 9.0 Date/Time Source Procedure Growth Status 11/27/16 18:50 Blood Peripheral Aerobic Blood Culture - Final NO GROWTH IN 5 DAYS Complete 11/27/16 18:50 Anaerobic Blood Culture - Final Staphylococcus Hominis-Hominis Complete 11/28/16 12:44 Nasal Aspirate Influenza Types A,B Antigen (AJMIN) - Final NEGATIVE FOR FLU A AND B ANTIGEN.... Complete 11/29/16 06:30 Urine Clean Catch Urine Culture - Final NO GROWTH IN 48 HOURS. Complete Physical Exam Physical Exam GENERAL: The patient is alert and oriented, morbidly obese lying in bed with a Venti-mask on at present. Some shortness of breath. VITAL SIGNS: reviewed HEENT: Head is atraumatic, normocephalic. Eyes negative conjunctival icterus. Mouth unremarkable. NECK: Supple. Negative increase in JVD. Central trachea. CHEST: distant air entry bibasilarly, without wheezing and rhonchi CARDIOVASCULAR: S1 and S2 audible. Unable to hear any S3 gallop. ABDOMEN: Soft, doughy. Non-tender. No organomegaly. Positive bowel sounds. EXTREMITIES: No cyanosis or pedal edema appreciated. AIRBORNE MISSIONS SYSTEMS: Grossly intact. SKIN: Warm and moist. PSYCHIATRIC: Appropriate mood and affect. A/P Assessment and Plan 1. Respiratory failure. 2. Mild respiratory acidosis. 3. COPD exacerbation. 4. Acute bronchitis. 5. Leukocytosis secondary to above. 6. Sepsis on admission. 7. Lactic acidosis. 8. Hypomagnesemia. 9. Diabetes. 10. Hypertension. 11. Hyperlipidemia. PLAN 1. seen on floor. 2. Encourage hydration. 3. Breathing treatment. 4. antibiotic. 5. steroids. 6. Pulmonary consult and input jana . 7. senior clinical consultant and input appreciated. 2-D echo report reviewed 8. Labs reviewed. 9. wnl lactic acid. 10. Within normal white blood cell count 11. Continue home medications as indicated. 12. Sliding scale insulin coverage. 13. metformin restarted home 14. Breathing treatment on p.r.n. basis. 15. Discussed with the patient. 16. Discussed with RN. 17. Appreciate urology consult Patient is walking around without any problem Discussed with patient about DC planning very happy about it. He will follow primary care doctor and pulmonary as outpatient DC home today Jas Irizarry MD Dec 02, 2016 11:21
[2016-12-02] MEDS ORDERED: CEFU1TAB42 PO (11:42)
[2016-12-02] MEDS ORDERED: PRED20 PO (11:42)
[2016-12-02] MEDS: HEPARIN SODIUM - SQ 10,000 UNITS/ML VIAL SQ SCH (12:15)
[2016-12-02] MEDS ORDERED: OXYGENDME NAS.CANULA (12:48)
--- NOTE | 2016-12-02 13:02 | HHI.PR ---
Subjective Remarks Alert and up in chair.On o2 2 L. CPAP at HS CXR is clear. No chest pain. Walks with O2 Has no cough. Objective Vital Signs Date Time Temp Pulse Resp B/P (MAP) Pulse Ox O2 Delivery O2 Flow Rate FiO2 12/02/16 12:11 3.00 12/02/16 07:40 97.7 66 20 155/87 (109) 93 12/02/16 07:39 95 12/02/16 04:00 97.7 56 20 140/82 (101) 96 12/02/16 00:00 97.2 107 20 130/73 (92) 96 12/01/16 21:13 50 12/01/16 20:00 97.8 63 18 137/61 (86) 96 12/01/16 17:43 18 12/01/16 16:00 97.6 65 18 144/87 (106) 94 I/O 12/01/16 12/01/16 12/01/16 12/02/16 12/02/16 12/02/16 07:00 15:00 23:00 07:00 15:00 23:00 Intake Total 250 ml 1340 ml Balance 250 ml 1340 ml Intake Oral 1240 ml IV Total 250 ml 100 ml # Voids 4 4 # Bowel Movements 4 2 Result Diagram: 12/02/16 0716 11/30/16 0543 Objective Remarks GENERAL: This very obese middle-aged white male who is awake HEENT: Head normocephalic. Pupils reactive and equal. Tongue is moist. Throat was clear. Nasal mucosa is clear. NECK: No bruits. No thyroid enlargement or lymphadenopathy. CHEST: Distant breath sounds with occasional wheezes over both lung longo. Prolonged expirations. HEART: The heart sounds are regular S1-S2 with no murmur, no S3 gallop. ABDOMEN: Obese, protuberant without masses. No organomegaly or tenderness. Bowel sounds are active. EXTREMITIES: Varicosities. Pigmentation of the skin of the lower extremities. No calf tenderness. NEUROLOGIC: Reflexes 1+ with no gross motor deficits. Alert , Oriented. Assessment and Plan Assessment and Plan IMPRESSION 1. Acute on chronic respiratory failure. 2. Obstructive sleep apnea syndrome. 3. COPD with acute exacerbation. 4. Chronic bronchitis and emphysema. 5. Hypertension. 6. Diabetes mellitus type 2. 7. Nicotine dependency. 8. Chronic neck pain with cervical disk disease Plan : 1. Cont o2 at 2 L. 2. Continue CPAP at HS and PRN daytime. 3. Home per Dr Irizarry 4. Duoneb nebs qid. 5. Will F/U as OP in 2 weeks. 6. Ceftin 500 mg bid X 7 days 7. Symbicort 160/4.5 mcg , 2 puffs bid Bernie Mason MD Dec 02, 2016 13:02
== END 2016-12-02 15:51 | disposition home or self-care (01) | DRG 871 ==
LOC: NEPE 18:14 → NEDA 23:33 → NEDH 11-28 04:06 → HIMN 11-28 06:00 → N05B 11-30 21:16
PROVIDERS: ADMIT Specialist; ATTEND Specialist
PROC: 5A09357 Assistance with Respiratory Ventilation, Less than 24 Consecutive Hours, Continuous Positive Airway Pressure (ICD-10-PCS; principal; 2016-11-27)
DX: A41.9 Sepsis, unspecified organism (principal); J18.9 Pneumonia, unspecified organism; J96.21 Acute and chronic respiratory failure with hypoxia; E87.2 Acidosis; J84.10 Pulmonary fibrosis, unspecified; K76.0 Fatty (change of) liver, not elsewhere classified; J44.0 Chronic obstructive pulmonary disease with (acute) lower respiratory infection; J44.1 Chronic obstructive pulmonary disease with (acute) exacerbation; F17.210 Nicotine dependence, cigarettes, uncomplicated; R91.1 Solitary pulmonary nodule; E78.5 Hyperlipidemia, unspecified; I10 Essential (primary) hypertension; E11.9 Type 2 diabetes mellitus without complications; J20.9 Acute bronchitis, unspecified; E83.42 Hypomagnesemia; G47.33 Obstructive sleep apnea (adult) (pediatric); G89.29 Other chronic pain; M54.2 Cervicalgia; Z87.01 Personal history of pneumonia (recurrent); I83.93 Asymptomatic varicose veins of bilateral lower extremities; Z91.19 Patient's noncompliance with other medical treatment and regimen; E66.01 Morbid (severe) obesity due to excess calories; R31.0 Gross hematuria; A63.0 Anogenital (venereal) warts; Z79.84 Long term (current) use of oral hypoglycemic drugs
CPT/HCPCS: 36600; 71010; 71020; 71275; 76775; 80048; 80076; 81001; 82550; 82552; 82805; 82948; 83605; 83735; 83880; 84484; 85025; 85027; 85610; 85730; 86403; 87040; 87077; 87086; 87186; 87205; 87641; 87804; 93005; 93306; 94003; 94060; 94620; 94640; 94664; 96361; 96365; J0456; J0696; J1644; J1815; J2920; J3475; J7030; J7050; J7512; Q9967

== ENCOUNTER 2016-12-04 14:46 | Emergency (ER) | payer MEDICARE, OTHER ==
[~2016-12-04] VITALS: Ht 175.3 cm; Wt 165.0 kg
[~2016-12-04 14:46] MED LIST changes: -AMLODIPINE/BENAZ PO; -ASPI81 PO; +ASPI81CH37 CHEW; +BENA40TA PO; +CEFU1TAB42 PO; -DARV PO; +DULA0.5I SQ; +GABA300C5 PO; -GLUCTAB PO; -GLYB1TAB51 PO; +HYDR25TA5 PO; +KETO0.02 EACH EYE; +MELO-1 PO; -METATAB PO; +METF1000 PO; +METO100T9 PO; +MONT10TA4 PO; +NIAC500T67 PO; +OMEP20TA PO; +OXYGENDME NAS.CANULA; -POTA-243 PO; +PRAV10TA PO; +PRED20 PO; -TOPR50TA PO; -TORS20 PO; +TRAM50TA PO; -ZEGRID PO
[2016-12-04 14:53] VITALS: BP 142/72; PULSE 69; RESP 19; TEMP 98
--- NOTE | 2016-12-04 15:25 | PD ---
HPI Chief Complaint: Complaint Time Seen by Provider: 15:18 Travel History International Travel<30 days: No Contact w/Intl Traveler<30days: No Traveled to known affect area: No History of Present Illness HPI 51-year-old male with history of CAD, currently on Plavix, sleep apnea, recent pneumonia admission, complicated by hematuria from urinary catheter starting about 5 days ago, released 2 days ago, and states that he has had ongoing hematuria, having burning with urination. He denies any fevers, vomiting, or any other symptoms. He states that the bleeding seems to be continuing and has not abated at all. He states he has ongoing shortness of breath that has not changed since his admission. Modifying Factors: None Associated Signs & Symptoms: Hematuria Risk Factors: None PFSH Past Medical History Hx Anticoagulant Therapy: Yes (plavix) Blood Disorders: No Cancer: No Cardiovascular Problems: Yes Diabetes: Yes Patient Takes Glucophage: Yes Diminished Hearing: No Endocrine: No Gastrointestinal Disorders: Yes Glaucoma: No Genitourinary: No Headaches: Yes Hepatitis: No Hiatal Hernia: No Hypertension: Yes Immune Disorder: No Musculoskeletal: Yes Neurologic: Yes Psychiatric: No Reproductive: No Respiratory: Yes (SOB AND SLEEP APNEA (CPAP)) Immunizations Current: Yes Thyroid Disease: No Past Surgical History Abdominal Surgery: Yes (COLONOSCOPY) Cardiac Surgery: Yes (HEART CATH 2003) Pacemaker: No Other Surgery: Yes Social History Alcohol Use: No Tobacco Use: Yes (3 PACK DAY ) Substance Use: No Allergies-Medications (Allergen,Severity, Reaction): Coded Allergies: No Known Allergies (Verified , 11/27/16) Reported Meds & Prescriptions Reported Meds & Active Scripts Active Oxygen (O2) Device Liter VINCENT.CANULA CONTINUOUS Oxygen Concentrator Portable Gaseous 2 L/min via Nasal Canula Continuous For 99 months Prednisone 20 Mg Tab 20 Mg PO DAILY 7 Days Ceftin (Cefuroxime Axetil) 250 Mg Tab 500 Mg PO BID 7 Days Reported ZyrTEC Itchy Eye Opth Drops (Ketotifen Opth Drops) 0.025% Drops 1 Drop EACH EYE BID PRN Niacin (Niacinamide) 500 Mg Tablet 1,000 Mg PO HS Montelukast (Montelukast Sodium) 10 Mg Tab 10 Mg PO HS Meloxicam 15 Mg Tab 15 Mg PO DAILY Hydrochlorothiazide 25 Mg Tab 25 Mg PO DAILY Benazepril (Benazepril HCl) 40 Mg Tab 40 Mg PO DAILY Pravastatin 10 Mg Tab 10 Mg PO DAILY Metoprolol Succinate ER 24 HR (Metoprolol Succinate) 100 Mg Tab 100 Mg PO DAILY Tramadol (Tramadol HCl) 50 Mg Tab 50 Mg PO BID PRN Metformin (Metformin HCl) 1,000 Mg Tab 1,000 Mg PO TIDAC Gabapentin 300 Mg Cap 300 Mg PO HS Omeprazole 20 Mg Tab 20 Mg PO DAILY Trulicity Inj (Dulaglutide Inj) 1.5 Mg/0.5 Ml Pen 1.5 Mg SQ Q7D Aspirin Low Dose (Aspirin) 81 Mg Chew 81 Mg CHEW DAILY Review of Systems Except as stated in HPI: all other systems reviewed are Neg Physical Exam Narrative GENERAL: Well-developed obese middle age white male patient currently in moderate distress. Awake and oriented 3. SKIN: Focused skin assessment warm/dry. HEAD: Atraumatic. Normocephalic. EYES: Pupils equal and round. No scleral icterus. No injection or drainage. ENT: No nasal bleeding or discharge. Mucous membranes pink and moist. NECK: Trachea midline. No JVD. CARDIOVASCULAR: Regular rate and rhythm. No murmur appreciated. RESPIRATORY: No accessory muscle use. Clear to auscultation. Breath sounds equal bilaterally. GASTROINTESTINAL: Abdomen soft, obese, non-tender, nondistended. Hepatic and splenic margins not palpable. MUSCULOSKELETAL: No obvious deformities. No clubbing. No cyanosis. No edema. NEUROLOGICAL: Awake and alert. No obvious cranial nerve deficits. Motor grossly within normal limits. Normal speech. PSYCHIATRIC: Appropriate mood and affect; insight and judgment normal. Data Data Last Documented VS Vital Signs Date Time Temp Pulse Resp B/P (MAP) Pulse Ox O2 Delivery O2 Flow Rate FiO2 12/04/16 14:53 98.0 69 19 142/72 (95) Orders Orders Complete Blood Count With Diff (12/04/16 15:18) Comprehensive Metabolic Panel (12/04/16 15:18) Prothrombin Time / Inr (Pt) (12/04/16 15:18) Act Partial Throm Time (Ptt) (12/04/16 15:18) Urinalysis - C+S If Indicated (12/04/16 15:18) Urinary Catheter Insert/Apply (12/04/16 15:18) Type And Screen (12/04/16 15:18) Urine Culture (12/04/16 15:20) Labs Laboratory Tests Test 12/04/16 15:20 12/04/16 15:30 Urine Color LIGHT-RED Urine Turbidity CLEAR Urine pH 6.0 Urine Specific [place] 1.016 Urine Protein TRACE mg/dL Urine Glucose (UA) NEG mg/dL Urine Ketones NEG mg/dL Urine Occult Blood LARGE Urine Nitrite NEG Urine Bilirubin NEG Urine Urobilinogen LESS THAN 2.0 MG/DL Urine Leukocyte Esterase SMALL Urine RBC /hpf Urine WBC 112 /hpf Urine Squamous Epithelial Cells 1 /hpf Microscopic Urinalysis Comment CULTURE INDICATED White Blood Count 10.8 TH/MM3 Red Blood Count 3.88 MIL/MM3 Hemoglobin 11.9 GM/DL Hematocrit 35.0 % Mean Corpuscular Volume 90.3 FL Mean Corpuscular Hemoglobin 30.8 PG Mean Corpuscular Hemoglobin Concent 34.1 % Red Cell Distribution Width 14.2 % Platelet Count 218 TH/MM3 Mean Platelet Volume 9.0 FL Neutrophils (%) (Auto) 73.7 % Lymphocytes (%) (Auto) 16.6 % Monocytes (%) (Auto) 9.0 % Eosinophils (%) (Auto) 0.6 % Basophils (%) (Auto) 0.1 % Neutrophils # (Auto) 7.9 TH/MM3 Lymphocytes # (Auto) 1.8 TH/MM3 Monocytes # (Auto) 1.0 TH/MM3 Eosinophils # (Auto) 0.1 TH/MM3 Basophils # (Auto) 0.0 TH/MM3 CBC Comment AUTO DIFF Prothrombin Time 11.5 SEC Prothromb Time International Ratio 1.0 RATIO Activated Partial Thromboplast Time 23.6 SEC Blood Urea Nitrogen 18 MG/DL Creatinine 1.05 MG/DL Random Glucose 103 MG/DL Total Protein 6.4 GM/DL Albumin 3.1 GM/DL Calcium Level 9.0 MG/DL Alkaline Phosphatase 121 U/L Aspartate Amino Transf (AST/SGOT) 128 U/L Alanine Aminotransferase (ALT/SGPT) 179 U/L Total Bilirubin 0.7 MG/DL Sodium Level 136 MEQ/L Potassium Level 3.9 MEQ/L Chloride Level 102 MEQ/L Carbon Dioxide Level 26.7 MEQ/L Anion Gap 7 MEQ/L Estimat Glomerular Filtration Rate 74 ML/MIN MDM Medical Decision Making Medical Screen Exam Complete: Yes Emergency Medical Condition: Yes Medical Record Reviewed: Yes Interpretation(s) Laboratory Tests Test 12/04/16 15:20 12/04/16 15:30 Urine Color LIGHT-RED (YELLW/STRAW) Urine Occult Blood LARGE (NEG) Urine Leukocyte Esterase SMALL (NEG) Urine WBC 112 /hpf (0-5) Red Blood Count 3.88 MIL/MM3 (4.50-5.90) Hemoglobin 11.9 GM/DL (13.0-17.0) Hematocrit 35.0 % (39.0-51.0) Neutrophils (%) (Auto) 73.7 % (16.0-70.0) Monocytes (%) (Auto) 9.0 % (0.0-8.0) Neutrophils # (Auto) 7.9 TH/MM3 (1.8-7.7) Monocytes # (Auto) 1.0 TH/MM3 (0-0.9) Activated Partial Thromboplast Time 23.6 SEC (24.3-30.1) Albumin 3.1 GM/DL (3.4-5.0) Alkaline Phosphatase 121 U/L (45-117) Aspartate Amino Transf (AST/SGOT) 128 U/L (15-37) Alanine Aminotransferase (ALT/SGPT) 179 U/L (12-78) Estimat Glomerular Filtration Rate 74 ML/MIN (>89) Differential Diagnosis Ongoing hematuria: Coagulopathy versus UTI, evaluation for rule out anemia Narrative Course Matthews catheter was placed and hematuria seems to have stopped. Lab work shows significant UTI. At this point, case was discussed with Dr. ramos was covering for Dr. Ramirez who saw the patient for urology 3 days ago during his admission, and he states that the patient can follow-up in their office, get antibiotics for the UTI. Return for any worsening in bleeding, new issues as needed. The plan has been discussed with the patient and he states understanding. Diagnosis Primary Impression: Hematuria Additional Impression: UTI (urinary tract infection) Referrals: Harsha Ramirez DO Med/Other Pt SpecificInfo: Prescription(s) given Scripts Ciprofloxacin (Cipro) 500 Mg Tab 500 MG PO BID for Infection for 7 Days, #14 TAB 0 Refills Prov: Erick Gurrola MD 12/04/16 Disposition: 01 DISCHARGE HOME Condition: Stable Erick Gurrola MD Dec 04, 2016 15:25
[2016-12-04 15:52] LABS: AUTOMATED NEUTROPHIL # 7.9 TH/MM3 (1.8-7.7); BASOPHIL % 0.1 % (0.0-2.0); EOSINOPHIL # 0.1 TH/MM3 (0-0.4); EOSINOPHIL % 0.6 % (0.0-4.0); HEMOGLOBIN 11.9 GM/DL (13.0-17.0); LYMPH % 16.6 % (9.0-44.0); LYMPHOCYTE # 1.8 TH/MM3 (1.0-4.8); MEAN CELL VOLUME 90.3 FL (80.0-100.0); MEAN CORPUSCULAR HEMOGLOBIN 30.8 PG (27.0-34.0); MEAN CORPUSCULAR HGB CONC 34.1 % (32.0-36.0); NEUT % 73.7 % (16.0-70.0); PLATELET COUNT 218 TH/MM3 (150-450); RED BLOOD COUNT 3.88 MIL/MM3 (4.50-5.90); RED CELL DISTRIBUTION WIDTH 14.2 % (11.6-17.2); WHITE BLOOD COUNT 10.8 TH/MM3 (4.0-11.0)
[2016-12-04 16:00] LABS: BILIRUBIN, URINE NEG (NEG); BLOOD, URINE LARGE (NEG); GLUCOSE,URINE NEG (NEG); KETONE, URINE NEG (NEG); NITRITE,URINE NEG (NEG); SQUAMOUS EPITHELIAL CELL URINE 1 /hpf (0-5); URINE LEUKOCYTE ESTERASE SMALL (NEG)
[2016-12-04 16:01] LABS: URINE COLOR LIGHT-RED (YELLW/STRAW)
[2016-12-04 16:08] LABS: PROTHROMBIN TIME - PATIENT 11.5 SEC (9.8-11.6)
[2016-12-04 16:12] LABS: ALT (GPT) 179 U/L (12-78)
[2016-12-04 16:14] LABS: ALKALINE PHOSPHATASE 121 U/L (45-117); TOTAL BILIRUBIN ADULT 0.7 MG/DL (0.2-1.0); TOTAL PROTEIN 6.4 GM/DL (6.4-8.2)
[2016-12-04 16:16] LABS: ALBUMIN 3.1 GM/DL (3.4-5.0); AST (GOT) 128 U/L (15-37); BICARBONATE 26.7 MEQ/L (21.0-32.0); BLOOD UREA NITROGEN 18 MG/DL (7-18); CHLORIDE 102 MEQ/L (98-107); CREATININE 1.05 MG/DL (0.60-1.30); GLOMERULAR FILTRATION RATE 74 ML/MIN (>89); GLUCOSE,RANDOM 103 MG/DL (74-106); SODIUM (NA) 136 MEQ/L (136-145)
[2016-12-04] MEDS ORDERED: CIPR-9 PO (16:36)
== END 2016-12-04 17:58 | disposition home or self-care (01) ==
LOC: NEPC 14:46
DX: N39.0 Urinary tract infection, site not specified (principal); R31.9 Hematuria, unspecified; F17.200 Nicotine dependence, unspecified, uncomplicated
CPT/HCPCS: 51702; 80053; 81001; 85025; 85610; 85730; 86850; 86900; 86901; 87086

== ENCOUNTER 2016-12-07 19:33 | Emergency (ER) | payer MEDICARE, OTHER ==
[~2016-12-07] VITALS: Ht 175.3 cm; Wt 164.0 kg
[~2016-12-07 19:33] MED LIST changes: +CIPR-9 PO
[2016-12-07 19:35] VITALS: BP 134/86; PULSE 102; RESP 20; TEMP 98.4; O2SAT 95
--- NOTE | 2016-12-07 21:07 | PD ---
HPI Chief Complaint: Consulting Sme Problem Time Seen by Provider: 21:05 Travel History International Travel<30 days: No Contact w/Intl Traveler<30days: No Traveled to known affect area: No History of Present Illness HPI 51-year-old male came to the emergency room with history of lower abdominal pain and Matthews catheter removal. Patient had hematuria that sounded more iatrogenic while he was hospitalized here approximately one week ago. At that time his hospitalization was for sepsis, respiratory distress and possible pneumonia. He ended up getting catheterized for urine collection and soon after that he started experiencing hematuria. Patient says that he has had hematuria from then until his discharge which was after 3 days of admission. Once the patient went home he continued to have blood in his urine every single urination and it was getting progressively worse. He was urinating all blood along with some blood clots. He returned to the emergency room 3 days after his discharge and at that time he got a Matthews catheter for the hematuria and was discharged home on the Matthews catheter. He was also given antibiotic for presumed UTI. Patient was supposed to get the catheter removed in 2 days as per emergency room instructions. However he called Dr. Ramirez's office yesterday which was 3 days after Matthews placement and was told to follow-up in the office this . However patient says that he is extremely uncomfortable with the catheter and would want the catheter taken out. Patient never really had history of urinary retention. All these symptoms are very new to him. He does not have any history of bladder or prostate issues in the past. No history of fever or chills this time. Patient has not noticed any gross blood in the urine bag since he has had his catheter. Patient seems anxious and frustrated and just wants the catheter taken out at this point. He was slightly tachycardic in the low 100s upon arrival. [facility] Past Medical History Narrative Medical List of his past medical, surgical, social and family history is reviewed from the nursing note. Hx Anticoagulant Therapy: Yes (plavix) Blood Disorders: No Cancer: No Cardiovascular Problems: Yes Diabetes: Yes Patient Takes Glucophage: No Diminished Hearing: No Endocrine: No Gastrointestinal Disorders: Yes Glaucoma: No Genitourinary: No Headaches: Yes Hepatitis: No Hiatal Hernia: No Hypertension: Yes Immune Disorder: No Medical other: No Musculoskeletal: Yes Neurologic: Yes Psychiatric: No Reproductive: No Respiratory: Yes (SOB AND SLEEP APNEA (CPAP)) Immunizations Current: Yes Thyroid Disease: No Tetanus Vaccination: > 5 Years Past Surgical History Abdominal Surgery: Yes (COLONOSCOPY) Cardiac Surgery: Yes (HEART CATH 2003) Pacemaker: No Other Surgery: Yes Social History Alcohol Use: No Tobacco Use: Yes (3 PACK DAY ) Substance Use: No Allergies-Medications (Allergen,Severity, Reaction): Coded Allergies: No Known Allergies (Verified , 12/07/16) Comments No known drug allergies. Reported Meds & Prescriptions Reported Meds & Active Scripts Active Cipro (Ciprofloxacin HCl) 500 Mg Tab 500 Mg PO BID 7 Days Oxygen (O2) Device Liter VINCENT.CANULA CONTINUOUS Oxygen Concentrator Portable Gaseous 2 L/min via Nasal Canula Continuous For 99 months Prednisone 20 Mg Tab 20 Mg PO DAILY 7 Days Ceftin (Cefuroxime Axetil) 250 Mg Tab 500 Mg PO BID 7 Days Reported ZyrTEC Itchy Eye Opth Drops (Ketotifen Opth Drops) 0.025% Drops 1 Drop EACH EYE BID PRN Niacin (Niacinamide) 500 Mg Tablet 1,000 Mg PO HS Montelukast (Montelukast Sodium) 10 Mg Tab 10 Mg PO HS Meloxicam 15 Mg Tab 15 Mg PO DAILY Hydrochlorothiazide 25 Mg Tab 25 Mg PO DAILY Benazepril (Benazepril HCl) 40 Mg Tab 40 Mg PO DAILY Pravastatin 10 Mg Tab 10 Mg PO DAILY Metoprolol Succinate ER 24 HR (Metoprolol Succinate) 100 Mg Tab 100 Mg PO DAILY Tramadol (Tramadol HCl) 50 Mg Tab 50 Mg PO BID PRN Metformin (Metformin HCl) 1,000 Mg Tab 1,000 Mg PO TIDAC Gabapentin 300 Mg Cap 300 Mg PO HS Omeprazole 20 Mg Tab 20 Mg PO DAILY Trulicity Inj (Dulaglutide Inj) 1.5 Mg/0.5 Ml Pen 1.5 Mg SQ Q7D Aspirin Low Dose (Aspirin) 81 Mg Chew 81 Mg CHEW DAILY Narrative Medication List of his home medications reviewed from the nursing note. Review of Systems Except as stated in HPI: all other systems reviewed are Neg Genitourinary: Positive: Other (Matthews catheter ) Physical Exam Narrative GENERAL: Awake, alert, morbidly obese, moderate distress SKIN: Focused skin assessment warm/dry. HEAD: Atraumatic. Normocephalic. EYES: Pupils equal and round. No scleral icterus. No injection or drainage. ENT: No nasal bleeding or discharge. Mucous membranes pink and moist. NECK: Trachea midline. No JVD. CARDIOVASCULAR: Regular rate and rhythm. No murmur appreciated. RESPIRATORY: No accessory muscle use. Clear to auscultation. Breath sounds equal bilaterally. GASTROINTESTINAL: Abdomen soft, non-tender, nondistended. Hepatic and splenic margins not palpable. Matthews catheter with a leg bag MUSCULOSKELETAL: No obvious deformities. No clubbing. No cyanosis. No edema. NEUROLOGICAL: Awake and alert. No obvious cranial nerve deficits. Motor grossly within normal limits. Normal speech. PSYCHIATRIC: Appropriate mood and affect; insight and judgment normal. Data Data Last Documented VS Orders Orders Urinary Catheter - Remove (12/07/16 21:42) Ed Discharge Order (12/07/16 22:23) [facility] Medical Decision Making Medical Screen Exam Complete: Yes Emergency Medical Condition: Yes Medical Record Reviewed: Yes Differential Diagnosis Matthews catheter removal Narrative Course 10:15 PM I went over all the past medical record from past one week since his admission along with the patient and his . Neither his urine culture for the blood culture has yielded any pathogen. I have asked the patient to stop taking the antibiotics at this point. I have ordered to get the Matthews catheter removed. Patient will be discharged home after the removal. I did warn him of the fact that there is a possibility of urinary retention post-Matthews catheter removal. I have also educated him to try urinating in a bathtub with warm water if he is experiencing urinary retention. In case if nothing works in [place] to return to the emergency room. Patient understands. He will be discharged home. Procedures EKG Prior to Arrival: No Diagnosis Primary Impression: Encounter for Matthews catheter removal Referrals: Primary Care Physician Additional Instructions: Please return to the emergency room if the condition worsens or any other new concerns. Otherwise follow-up with your primary care. I would recommend to keep the appointment with the urologist that is coming up for you. If you start having symptoms of urinary retention the community to come back to the emergency room. You do not need to continue taking the ciprofloxacin or any other antibiotic at this point. Med/Other Pt SpecificInfo: Med Stopped (cephalexin and ciprofloxacin) Disposition: 01 DISCHARGE HOME Condition: Stable Nithin Fowler MD Dec 07, 2016 21:07
== END 2016-12-07 22:54 | disposition home or self-care (01) ==
LOC: NEPE 19:33
DX: T83.9XXA Unspecified complication of genitourinary prosthetic device, implant and graft, initial encounter (principal); R31.9 Hematuria, unspecified; R00.0 Tachycardia, unspecified; E11.9 Type 2 diabetes mellitus without complications; I10 Essential (primary) hypertension; E66.01 Morbid (severe) obesity due to excess calories; F17.200 Nicotine dependence, unspecified, uncomplicated; Z79.02 Long term (current) use of antithrombotics/antiplatelets; Z79.82 Long term (current) use of aspirin
CPT/HCPCS: 99283